=== PATIENT | female | born 1965 | race Two or more races ===

== ENCOUNTER 2022-05-08 19:30 | Inpatient (IN) | payer MEDICAID ==
[~2022-05-08] VITALS: Ht 157.5 cm; Wt 94.4 kg
[2022-05-08] MEDS ORDERED: SODIUM CHLORIDE 0.9% 1,000 ML IV ONE (20:30)
[2022-05-08 21:11] LABS: Albumin 3.8 g/dL (3.4-5.0); BUN/Creatinine Ratio 26.2; Calcium 9.1 mg/dL (8.5-10.1); Magnesium 2.2 mg/dL (1.6-2.6); Potassium 3.9 mmol/L (3.5-5.1)
[2022-05-08 21:14] LABS: Bilirubin, Total 0.8 mg/dL (0.2-1.0); Total Protein 7.2 g/dL (6.4-8.2)
[2022-05-08 21:17] LABS: INR 0.93 (0.9-1.15); Partial Thromboplastin Time 25.4 sec (24.6-33.4)
[2022-05-08] MEDS ORDERED: HYDROmorphone HCL 2 MG/ML VL/or syr IV ONE (21:45)
[2022-05-08] MEDS ORDERED: ONDANSETRON HCL 4 MG/2 ML VIAL IV ONE ×2 (21:45→23:00)
[2022-05-08] MEDS ORDERED: IOHEXOL 350 MG/ML 100ML IJ ONE (22:10)
[2022-05-08 22:16] LABS: Albumin 3.4 g/dL (3.4-5.0); Calcium 8.7 mg/dL (8.5-10.1); Potassium 4.1 mmol/L (3.5-5.1)
[2022-05-08 22:18] LABS: Hemoglobin 11.6 g/dL (12.2-16.2)
[2022-05-08 22:19] LABS: BUN/Creatinine Ratio 23.1; Bilirubin, Total 0.7 mg/dL (0.2-1.0); Total Protein 6.4 g/dL (6.4-8.2)
[2022-05-08 22:20] LABS: Hematocrit 36.1 % (36.0-46.0); Mean Corpuscular Hemoglobin 28.5 pg (28.0-32.0); Mean Corpuscular Hgb Conc. 32.2 g/dL (32.0-36.0); Mean Corpuscular Volume 88.6 fL (80.0-100.0); Red Blood Cells 4.07 10^6/uL (4.0-5.20); Red Cell Distribution Width 13.6 % (11.8-14.3)
[2022-05-08 22:39] LABS: Basophils % (manual) 0 (0.0-2.0); Blast Cells 0; Myelocytes % 0; Promyelocytes % 0; Reactive Lymphocytes 0; White Blood Cell 0.8 10^3/uL (4.4-10.8)
[2022-05-08 23:35] LABS: Band Neutrophils % (manual) 2; Eosinophils % (manual) 7 (0-7); Lymphocytes % (manual) 72 (10.0-50.0); Metamyelocytes % 1; Monocytes % (manual) 10 (0-12)
[2022-05-09] MEDS ORDERED: MORPHINE SULFATE INJ 2 MG/ml SYRG IV PRN (03:00)
[2022-05-09] MEDS ORDERED: HYDROcodone-ACET 5/325MG TAB PO PRN (03:00)
[2022-05-09] MEDS ORDERED: ACETAMINOPHEN 325 MG TAB PO PRN (03:00)
[2022-05-09] MEDS ORDERED: PANTOPRAZOLE 40 MG/10 ML VIAL INJ IV ONE (03:00)
[2022-05-09] MEDS ORDERED: FILGRASTIM(TBO) 480 MCG/0.8 ML SYRG SC ONE (03:00)
[2022-05-09] MEDS: SODIUM CHLORIDE 0.9% 1,000 ML IV SCH ×2 (03:47→16:20)
[2022-05-09] MEDS: ONDANSETRON HCL 4 MG/2 ML VIAL IV PRN ×2 (06:08→16:04)
[2022-05-09] MEDS: PANTOPRAZOLE 40 MG/10 ML VIAL INJ IV SCH (09:27)
[2022-05-09 21:25] VITALS: BP 119/57
[2022-05-09] MEDS ORDERED: FAMO-12 PO (21:43)
[2022-05-09] MEDS ORDERED: PARO10TA93 PO (21:43)
[2022-05-09] MEDS ORDERED: PROC10TA2 PO (21:43)
[2022-05-09] MEDS ORDERED: DEXA4TAB PO (21:43)
[2022-05-09] MEDS ORDERED: ONDA-180 PO (21:43)
[2022-05-09 22:00] VITALS: BP 119/57
[2022-05-10 04:46] VITALS: BP 113/60
[2022-05-10] MEDS: SODIUM CHLORIDE 0.9% 1,000 ML IV SCH (05:09)
[2022-05-10 05:31] LABS: Hematocrit 34.7 % (36.0-46.0); Hemoglobin 11.5 g/dL (12.2-16.2); Mean Corpuscular Hemoglobin 29.3 pg (28.0-32.0); Mean Corpuscular Hgb Conc. 33.2 g/dL (32.0-36.0); Mean Corpuscular Volume 88.2 fL (80.0-100.0); Red Blood Cells 3.93 10^6/uL (4.0-5.20); Red Cell Distribution Width 13.9 % (11.8-14.3); White Blood Cell 2.2 10^3/uL (4.4-10.8)
[2022-05-10 05:48] LABS: Basophils % (manual) 0 (0.0-2.0); Blast Cells 0; Promyelocytes % 0; Reactive Lymphocytes 0
[2022-05-10 05:49] LABS: Potassium 4.5 mmol/L (3.5-5.1)
[2022-05-10 06:01] LABS: Albumin 3.4 g/dL (3.4-5.0); BUN/Creatinine Ratio 18.1; Bilirubin, Total 0.3 mg/dL (0.2-1.0); Calcium 8.7 mg/dL (8.5-10.1); Total Protein 6.4 g/dL (6.4-8.2)
[2022-05-10] MEDS: ONDANSETRON HCL 4 MG/2 ML VIAL IV PRN ×2 (06:09→13:23)
[2022-05-10 07:13] LABS: Band Neutrophils % (manual) 29; Eosinophils % (manual) 3 (0-7); Lymphocytes % (manual) 49 (10.0-50.0); Metamyelocytes % 2; Monocytes % (manual) 7 (0-12); Myelocytes % 2
[2022-05-10 09:00] VITALS: BP 100/47
[2022-05-10] MEDS: PANTOPRAZOLE 40 MG/10 ML VIAL INJ IV SCH (09:00)
[2022-05-10] MEDS ORDERED: SENNA 8.6 MG TAB PO ONE (09:30)
[2022-05-10 13:00] VITALS: BP 115/56
[2022-05-10 17:02] VITALS: BP 104/49
[2022-05-10 22:00] VITALS: BP 114/68
[2022-05-10] MEDS ORDERED: SENNA 8.6 MG TAB PO SCH (22:00)
[2022-05-11 05:00] VITALS: BP 135/75
[2022-05-11 05:39] LABS: BUN/Creatinine Ratio 15.4; Calcium 8.7 mg/dL (8.5-10.1); Potassium 4.1 mmol/L (3.5-5.1)
[2022-05-11 09:00] VITALS: BP 128/68
[2022-05-11] MEDS: PANTOPRAZOLE 40 MG/10 ML VIAL INJ IV SCH (09:24)
[2022-05-11 13:00] VITALS: BP 124/65
[2022-05-11 14:42] VITALS: BP 124/65
== END 2022-05-11 15:10 | disposition home or self-care (01) | DRG 251 ==
LOC: ER 19:30 → OVERFLOW 05-09 02:46 → EAST 05-09 20:43
PROVIDERS: ADMIT Nurse Practitioner; ATTEND Internal Medicine Pulmonary Disease
DX: R10.9 Unspecified abdominal pain (principal); C50.911 Malignant neoplasm of unspecified site of right female breast; D70.9 Neutropenia, unspecified; E86.0 Dehydration; Z20.822 Contact with and (suspected) exposure to COVID-19; Z82.49 Family history of ischemic heart disease and other diseases of the circulatory system; Z88.8 Allergy status to other drugs, medicaments and biological substances; Z83.3 Family history of diabetes mellitus; Z90.49 Acquired absence of other specified parts of digestive tract
CPT/HCPCS: 36415; 71260; 74177; 80048; 80053; 83605; 83735; 83880; 84484; 85007; 85027; 85610; 85730; 87040; 93005; 96361; 96372; 96374; 96375; 96376; C9113; G0378; J1447; J2405

== ENCOUNTER 2022-06-19 21:06 | Inpatient (IN) | payer MEDICAID ==
[~2022-06-19] VITALS: Ht 157.5 cm; Wt 92.1 kg
[~2022-06-19 21:06] MED LIST: DEXA4TAB PO; FAMO-12 PO; ONDA-180 PO; PARO10TA93 PO; PROC10TA2 PO
[2022-06-19] MEDS ORDERED: ONDANSETRON HCL 4 MG/2 ML VIAL IV ONE (22:30)
[2022-06-19 23:29] LABS: Basophils # (auto) 0 10 ^3/uL (0-0.2); Hemoglobin 9.2 g/dL (12.2-16.2); Lymphocytes # (auto) 0.2 10 ^3/uL (0.4-5.4); Monocytes # (auto) 0.1 10 ^3/uL (0-1.3); Neutrophils # (auto) 0 10 ^3/uL (1.6-8.6)
[2022-06-19] MEDS ORDERED: SODIUM CHLORIDE 0.9% 1,000 ML IV ONE (23:30)
[2022-06-19] MEDS ORDERED: FAMOTIDINE (10MG/ML) 2ML VL IV ONE (23:30)
[2022-06-19 23:32] LABS: Basophils % (auto) 4.2 % (0.0-2.0); Eosinophils # (auto) 0 10 ^3/uL (0-0.8); Eosinophils % (auto) 1.1 % (0.0-7.0); Hematocrit 27.3 % (36.0-46.0); Lymphocytes % (auto) 52.7 % (10.0-50.0); Mean Corpuscular Hemoglobin 29.9 pg (28.0-32.0); Mean Corpuscular Hgb Conc. 33.7 g/dL (32.0-36.0); Mean Corpuscular Volume 88.6 fL (80.0-100.0); Red Blood Cells 3.08 10^6/uL (4.0-5.20); Red Cell Distribution Width 17.3 % (11.8-14.3)
[2022-06-19 23:45] LABS: INR 0.97 (0.9-1.15); Partial Thromboplastin Time 27.1 sec (24.6-33.4)
[2022-06-19] MEDS ORDERED: IOHEXOL 350 MG/ML 100ML IJ ONE (23:48)
[2022-06-19 23:50] LABS: Albumin 3.1 g/dL (3.4-5.0); BUN/Creatinine Ratio 24.6; Calcium 8.7 mg/dL (8.5-10.1); Magnesium 1.9 mg/dL (1.6-2.6); Potassium 4.3 mmol/L (3.5-5.1)
[2022-06-19 23:52] LABS: Bilirubin, Total 0.5 mg/dL (0.2-1.0); Total Protein 6.1 g/dL (6.4-8.2)
[2022-06-20 00:08] LABS: White Blood Cell 0.3 10^3/uL (4.4-10.8)
[2022-06-20 02:29] LABS: Urine Bacteria NONE SEEN /hpf (None Seen); Urine Blood Negative /uL (Negative); Urine WBC 3 /hpf (0 - 5)
[2022-06-20 02:32] LABS: Urine Specific Gravity > 1.050 (1.001-1.035)
[2022-06-20] MEDS ORDERED: TEMAZEPAM 15 MG CAP PO PRN (04:45)
[2022-06-20] MEDS ORDERED: FILGRASTIM(TBO) 480 MCG/0.8 ML SYRG SC ONE (04:45)
[2022-06-20] MEDS ORDERED: HYDROcodone-ACET 5/325MG TAB PO PRN (04:45)
[2022-06-20] MEDS: PANTOPRAZOLE 40 MG TAB PO SCH (10:36)
[2022-06-20] MEDS: MULTIPLE VITAMIN TAB PO SCH (10:36)
[2022-06-20] MEDS: ZINC SULFATE 220mg CAP or TAB PO SCH (10:37)
[2022-06-20] MEDS: ASCORBIC ACID 500 MG TAB PO SCH ×2 (10:37→21:41)
[2022-06-20] MEDS ORDERED: CEFEPIME 1GM/ 50ML 50 ML IV ONE (12:45)
[2022-06-20] MEDS: CEFEPIME 1GM/ 50ML 50 ML IV SCH ×2 (13:07→21:20)
[2022-06-20 17:51] VITALS: BP 102/49
[2022-06-20 17:53] VITALS: BP 102/49
[2022-06-20] MEDS: ONDANSETRON HCL 4 MG/2 ML VIAL IV PRN ×2 (17:58→21:41)
[2022-06-20] MEDS ORDERED: PANT40TA2 PO (18:04)
[2022-06-20 22:00] VITALS: BP 104/57
[2022-06-21] MEDS: CEFEPIME 1GM/ 50ML 50 ML IV SCH ×3 (04:53→21:11)
[2022-06-21 05:00] VITALS: BP 104/47
[2022-06-21 06:07] LABS: Albumin 2.9 g/dL (3.4-5.0); BUN/Creatinine Ratio 12.8; Bilirubin, Total 0.4 mg/dL (0.2-1.0); Calcium 8.6 mg/dL (8.5-10.1); Total Protein 5.3 g/dL (6.4-8.2)
[2022-06-21 06:27] LABS: Basophils # (auto) 0 10 ^3/uL (0-0.2); Eosinophils # (auto) 0 10 ^3/uL (0-0.8); Lymphocytes # (auto) 0.3 10 ^3/uL (0.4-5.4)
[2022-06-21 06:29] LABS: Eosinophils % (auto) 0.6 % (0.0-7.0); Hematocrit 24.7 % (36.0-46.0); Lymphocytes % (auto) 25.3 % (10.0-50.0); Mean Corpuscular Hemoglobin 29.1 pg (28.0-32.0); Mean Corpuscular Hgb Conc. 32.5 g/dL (32.0-36.0); Mean Corpuscular Volume 89.5 fL (80.0-100.0); Monocytes # (auto) 0.4 10 ^3/uL (0-1.3); Neutrophils # (auto) 0.4 10 ^3/uL (1.6-8.6); Neutrophils % (auto) 35.7 % (37.0-80.0); Nucleated Red Blood Cells % 1.1 %; Red Blood Cells 2.76 10^6/uL (4.0-5.20)
[2022-06-21 07:06] LABS: Monocytes % (auto) 34.4 % (0.0-12.0)
[2022-06-21 08:30] VITALS: BP 103/47
[2022-06-21] MEDS: PANTOPRAZOLE 40 MG TAB PO SCH (09:27)
[2022-06-21] MEDS: ZINC SULFATE 220mg CAP or TAB PO SCH (09:28)
[2022-06-21] MEDS: ASCORBIC ACID 500 MG TAB PO SCH ×2 (09:28→21:54)
[2022-06-21] MEDS: MULTIPLE VITAMIN TAB PO SCH (09:28)
[2022-06-21 12:30] VITALS: BP 95/47
[2022-06-21] MEDS ORDERED: SENNA 8.6 MG TAB PO PRN (12:30)
[2022-06-21] MEDS: FILGRASTIM(TBO) 480 MCG/0.8 ML SYRG SC SCH (15:03)
[2022-06-21 16:13] VITALS: BP 105/50
[2022-06-21] MEDS: MAGIC MOUTHWASH 55 ML SUSP MT SCH ×2 (18:01→21:55)
[2022-06-21 22:00] VITALS: BP 107/42
[2022-06-22] MEDS: CEFEPIME 1GM/ 50ML 50 ML IV SCH ×3 (04:36→21:12)
[2022-06-22 05:00] VITALS: BP 93/40
[2022-06-22 05:26] LABS: Hemoglobin 8.6 g/dL (12.2-16.2); White Blood Cell 4.8 10^3/uL (4.4-10.8)
[2022-06-22 05:30] LABS: Mean Corpuscular Hemoglobin 30.4 pg (28.0-32.0); Mean Corpuscular Hgb Conc. 34.3 g/dL (32.0-36.0); Mean Corpuscular Volume 88.5 fL (80.0-100.0); Red Blood Cells 2.83 10^6/uL (4.0-5.20); Red Cell Distribution Width 18.3 % (11.8-14.3)
[2022-06-22 05:50] LABS: BUN/Creatinine Ratio 19.5; Calcium 8.8 mg/dL (8.5-10.1); Potassium 3.9 mmol/L (3.5-5.1)
[2022-06-22 06:21] LABS: Basophils % (manual) 0 (0.0-2.0); Blast Cells 0; Eosinophils % (manual) 0 (0-7); Reactive Lymphocytes 0
[2022-06-22] MEDS: MAGIC MOUTHWASH 55 ML SUSP MT SCH ×4 (07:10→21:53)
[2022-06-22 07:13] LABS: Band Neutrophils % (manual) 15; Lymphocytes % (manual) 14 (10.0-50.0); Metamyelocytes % 2; Monocytes % (manual) 7 (0-12); Myelocytes % 2; Promyelocytes % 2
[2022-06-22 09:00] VITALS: BP 108/48
[2022-06-22] MEDS: ACETAMINOPHEN 325 MG TAB PO PRN ×2 (10:26→21:54)
[2022-06-22] MEDS: PANTOPRAZOLE 40 MG TAB PO SCH (10:27)
[2022-06-22] MEDS: MULTIPLE VITAMIN TAB PO SCH (10:27)
[2022-06-22] MEDS: ASCORBIC ACID 500 MG TAB PO SCH ×2 (10:28→21:54)
[2022-06-22] MEDS: ZINC SULFATE 220mg CAP or TAB PO SCH (10:56)
[2022-06-22 13:00] VITALS: BP 97/54
[2022-06-22] MEDS: PARoxetine 20 MG TAB PO SCH (13:33)
[2022-06-22] MEDS: ONDANSETRON HCL 4 MG/2 ML VIAL IV PRN (13:47)
[2022-06-22] MEDS: FILGRASTIM(TBO) 480 MCG/0.8 ML SYRG SC SCH (14:22)
[2022-06-22] MEDS: PROMETHAZINE HCL 25 MG/ML 1ML IV PRN (16:04)
[2022-06-22 17:00] VITALS: BP 109/48
[2022-06-22 21:30] VITALS: BP 112/56
[2022-06-23 03:20] LABS: Hemoglobin 8.4 g/dL (12.2-16.2)
[2022-06-23 03:23] LABS: Hematocrit 24.4 % (36.0-46.0); Mean Corpuscular Hemoglobin 30.8 pg (28.0-32.0); Mean Corpuscular Hgb Conc. 34.6 g/dL (32.0-36.0); Mean Corpuscular Volume 88.9 fL (80.0-100.0); Red Blood Cells 2.74 10^6/uL (4.0-5.20); Red Cell Distribution Width 18.4 % (11.8-14.3); White Blood Cell 12.9 10^3/uL (4.4-10.8)
[2022-06-23 03:37] LABS: Basophils % (manual) 0 (0.0-2.0); Blast Cells 0; Eosinophils % (manual) 0 (0-7); Metamyelocytes % 0; Promyelocytes % 0; Reactive Lymphocytes 0
[2022-06-23 03:44] LABS: Calcium 8.6 mg/dL (8.5-10.1); Potassium 3.6 mmol/L (3.5-5.1)
[2022-06-23] MEDS: CEFEPIME 1GM/ 50ML 50 ML IV SCH (04:52)
[2022-06-23 05:00] VITALS: BP 108/52
[2022-06-23] MEDS: MAGIC MOUTHWASH 55 ML SUSP MT SCH ×2 (05:58→09:55)
[2022-06-23 08:53] VITALS: BP 103/46
[2022-06-23] MEDS ORDERED: MAGIC MT (09:43)
[2022-06-23] MEDS: PARoxetine 20 MG TAB PO SCH (09:54)
[2022-06-23] MEDS: ASCORBIC ACID 500 MG TAB PO SCH (09:54)
[2022-06-23] MEDS: ZINC SULFATE 220mg CAP or TAB PO SCH (09:54)
[2022-06-23] MEDS: MULTIPLE VITAMIN TAB PO SCH (09:54)
[2022-06-23] MEDS: PANTOPRAZOLE 40 MG TAB PO SCH (09:54)
[2022-06-23 12:21] LABS: Band Neutrophils % (manual) 9; Lymphocytes % (manual) 7 (10.0-50.0); Monocytes % (manual) 7 (0-12); Myelocytes % 1
[2022-06-23] MEDS: PROMETHAZINE HCL 25 MG/ML 1ML IV PRN (12:37)
[2022-06-23 13:05] VITALS: BP 117/66
== END 2022-06-23 15:00 | disposition home or self-care (01) | DRG 660 ==
LOC: ER 21:10 → OVERFLOW 06-20 04:39 → CENTRAL 06-20 16:58
PROVIDERS: ADMIT Nurse Practitioner; ATTEND Internal Medicine Pulmonary Disease
DX: D61.810 Antineoplastic chemotherapy induced pancytopenia (principal); C50.919 Malignant neoplasm of unspecified site of unspecified female breast; C34.90 Malignant neoplasm of unspecified part of unspecified bronchus or lung; K12.31 Oral mucositis (ulcerative) due to antineoplastic therapy; E86.0 Dehydration; E66.9 Obesity, unspecified; Z68.37 Body mass index [BMI] 37.0-37.9, adult; F32.A Depression, unspecified; Z20.822 Contact with and (suspected) exposure to COVID-19; T45.1X5A Adverse effect of antineoplastic and immunosuppressive drugs, initial encounter; Y92.89 Other specified places as the place of occurrence of the external cause; Z80.3 Family history of malignant neoplasm of breast; Z90.49 Acquired absence of other specified parts of digestive tract; Z85.3 Personal history of malignant neoplasm of breast; Z83.3 Family history of diabetes mellitus; Z82.49 Family history of ischemic heart disease and other diseases of the circulatory system; Z88.2 Allergy status to sulfonamides
CPT/HCPCS: 36415; 70450; 80048; 80053; 81001; 83605; 83735; 83880; 84484; 85007; 85025; 85027; 85610; 85730; 87804; 93005; 96361; 96374; 96375; G0378; J1447; J2405; J3490

== ENCOUNTER 2022-07-06 08:30 | Inpatient (IN) | payer MEDICAID ==
[~2022-07-06] VITALS: Ht 177.8 cm; Wt 93.6 kg
[~2022-07-06 08:30] MED LIST changes: +MAGIC MT; +PANT40TA2 PO
[2022-07-06 09:01] LABS: Hematocrit 29.2 % (36.0-46.0); Hemoglobin 9.6 g/dL (12.2-16.2); Mean Corpuscular Hemoglobin 29.7 pg (28.0-32.0); Mean Corpuscular Hgb Conc. 32.9 g/dL (32.0-36.0); Mean Corpuscular Volume 90.5 fL (80.0-100.0); Red Blood Cells 3.22 10^6/uL (4.0-5.20); White Blood Cell 17.5 10^3/uL (4.4-10.8)
[2022-07-06] MEDS ORDERED: cefTRIAXone 1GM/50ML D5W 50 ML IV ONE (09:15)
[2022-07-06 09:20] LABS: Calcium 8.7 mg/dL (8.5-10.1); Potassium 3.8 mmol/L (3.5-5.1)
[2022-07-06 09:24] LABS: BUN/Creatinine Ratio 12.1; Bilirubin, Total 0.6 mg/dL (0.2-1.0); Total Protein 6.4 g/dL (6.4-8.2)
[2022-07-06 09:45] LABS: Red Cell Distribution Width 20.9 % (11.8-14.3)
[2022-07-06 09:47] LABS: Basophils % (manual) 0 (0.0-2.0); Blast Cells 0; Eosinophils % (manual) 0 (0-7); Myelocytes % 0; Promyelocytes % 0; Reactive Lymphocytes 0
[2022-07-06 10:47] LABS: Band Neutrophils % (manual) 9; Lymphocytes % (manual) 5 (10.0-50.0); Metamyelocytes % 6; Monocytes % (manual) 9 (0-12)
[2022-07-06] MEDS ORDERED: ALBUTEROL SULF 2.5 MG/0.5ML(0.5%) NEB SOLN NEB PRN (12:00)
[2022-07-06] MEDS ORDERED: ONDANSETRON HCL 4 MG/2 ML VIAL IV PRN (12:00)
[2022-07-06] MEDS ORDERED: DOCUSATE SOD 100 MG CAP PO PRN (12:00)
[2022-07-06] MEDS ORDERED: ACETAMINOPHEN 325 MG TAB PO PRN (12:00)
[2022-07-06] MEDS ORDERED: MORPHINE SULFATE INJ 2 MG/ml SYRG IV PRN (12:00)
[2022-07-06] MEDS ORDERED: NITROGLYCERIN 0.4 MG SL TAB SL PRN (12:00)
[2022-07-06] MEDS ORDERED: IOHEXOL 350 MG/ML 100ML IJ ONE (12:29)
[2022-07-06 13:00] VITALS: BP 103/73
[2022-07-06 13:15] LABS: % Iron Saturation 13.8 % (15-50)
[2022-07-06] MEDS: SODIUM CHLORIDE 0.9% 1,000 ML IV SCH ×2 (14:36→20:20)
[2022-07-06] MEDS: ENSURE CLEAR Mixed Berry 8oz Carton PO SCH ×2 (14:46→18:00)
[2022-07-06] MEDS ORDERED: guaiFENesin-DM 100/10mg/5ml SYR PO ONE (21:15)
[2022-07-06] MEDS: ENOXAPARIN SOD 100 MG/1 ML SYRINGE SC SCH (21:40)
[2022-07-07] MEDS: IPRATROPIUM BROM 0.5 MG/2.5ML INH SOL NEB PRN ×2 (02:23→20:49)
[2022-07-07] MEDS: ALBUTEROL SULF 2.5 MG/0.5ML(0.5%) NEB SOLN NEB PRN ×2 (02:23→20:49)
[2022-07-07 04:26] LABS: Basophils # (auto) 0.1 10 ^3/uL (0-0.2); Eosinophils # (auto) 0.1 10 ^3/uL (0-0.8); Lymphocytes # (auto) 0.5 10 ^3/uL (0.4-5.4); Monocytes # (auto) 1.4 10 ^3/uL (0-1.3); Neutrophils # (auto) 8.8 10 ^3/uL (1.6-8.6)
[2022-07-07 04:28] LABS: Basophils % (auto) 1.1 % (0.0-2.0); Hematocrit 23.6 % (36.0-46.0); Lymphocytes % (auto) 4.5 % (10.0-50.0); Mean Corpuscular Hemoglobin 30.8 pg (28.0-32.0); Mean Corpuscular Volume 90.6 fL (80.0-100.0); Monocytes % (auto) 12.7 % (0.0-12.0); Neutrophils % (auto) 80.7 % (37.0-80.0); Nucleated Red Blood Cells % 0.6 %; White Blood Cell 10.9 10^3/uL (4.4-10.8)
[2022-07-07 04:35] LABS: Calcium 8.1 mg/dL (8.5-10.1); Potassium 3.8 mmol/L (3.5-5.1)
[2022-07-07 04:42] LABS: Albumin 2.5 g/dL (3.4-5.0); BUN/Creatinine Ratio 18.9; Bilirubin, Total 0.4 mg/dL (0.2-1.0); Total Protein 5.1 g/dL (6.4-8.2)
[2022-07-07 04:46] LABS: Red Cell Distribution Width 20.9 % (11.8-14.3)
[2022-07-07] MEDS: SODIUM CHLORIDE 0.9% 1,000 ML IV SCH ×3 (06:27→18:58)
[2022-07-07 10:42] VITALS: BP 116/47
[2022-07-07] MEDS ORDERED: SENNA 8.6 MG TAB PO ONE (11:15)
[2022-07-07] MEDS ORDERED: SENN1TAB14 PO (11:31)
[2022-07-07] MEDS: PARoxetine 20 MG TAB PO SCH (11:32)
[2022-07-07] MEDS: ASPirin 325 MG TAB PO SCH (11:32)
[2022-07-07] MEDS: cefTRIAXone 1GM/50ML D5W 50 ML IV SCH (11:32)
[2022-07-07] MEDS: PANTOPRAZOLE 40 MG/10 ML VIAL INJ IV SCH (11:32)
[2022-07-07] MEDS: AZITHROMYCIN 500MG/ 250ML 250 ML IV SCH (11:33)
[2022-07-07] MEDS: ENOXAPARIN SOD 100 MG/1 ML SYRINGE SC SCH ×2 (11:33→21:49)
[2022-07-07] MEDS: ENSURE CLEAR Mixed Berry 8oz Carton PO SCH ×3 (11:34→18:10)
[2022-07-07 22:20] VITALS: BP 101/49
[2022-07-08] MEDS: guaiFENesin-CODEINE Liq 5 ML UD PO PRN ×2 (00:10→21:59)
[2022-07-08 00:38] LABS: Urine Bacteria NONE SEEN /hpf (None Seen); Urine Blood Negative /uL (Negative); Urine Mucus FEW (None Seen); Urine Specific Gravity 1.021 (1.001-1.035); Urine WBC 1 /hpf (0 - 5)
[2022-07-08] MEDS: SODIUM CHLORIDE 0.9% 1,000 ML IV SCH ×3 (02:06→20:15)
[2022-07-08] MEDS: IPRATROPIUM BROM 0.5 MG/2.5ML INH SOL NEB PRN ×5 (02:15→21:19)
[2022-07-08] MEDS: ALBUTEROL SULF 2.5 MG/0.5ML(0.5%) NEB SOLN NEB PRN ×5 (02:15→21:19)
[2022-07-08 05:00] VITALS: BP 99/52
[2022-07-08 08:00] VITALS: BP 102/57
[2022-07-08] MEDS: ENSURE CLEAR Mixed Berry 8oz Carton PO SCH ×3 (08:00→19:00)
[2022-07-08] MEDS: ENOXAPARIN SOD 100 MG/1 ML SYRINGE SC SCH ×2 (10:02→21:59)
[2022-07-08] MEDS: cefTRIAXone 1GM/50ML D5W 50 ML IV SCH (10:02)
[2022-07-08] MEDS: PANTOPRAZOLE 40 MG/10 ML VIAL INJ IV SCH (10:02)
[2022-07-08] MEDS: ASPirin 325 MG TAB PO SCH (10:03)
[2022-07-08] MEDS: PARoxetine 20 MG TAB PO SCH (10:05)
[2022-07-08] MEDS: AZITHROMYCIN 500MG/ 250ML 250 ML IV SCH (11:05)
[2022-07-08 12:00] VITALS: BP 107/49
[2022-07-08 16:00] VITALS: BP 99/55
[2022-07-08 22:00] VITALS: BP 123/91
[2022-07-08] MEDS ORDERED: SENNA 8.6 MG TAB PO SCH (22:00)
[2022-07-09] VITALS (9 sets, daily range): BP systolic 105–148; BP diastolic 41–81
[2022-07-09] MEDS: ALBUTEROL SULF 2.5 MG/0.5ML(0.5%) NEB SOLN NEB PRN ×2 (02:40→10:11)
[2022-07-09] MEDS: IPRATROPIUM BROM 0.5 MG/2.5ML INH SOL NEB PRN ×2 (02:40→10:11)
[2022-07-09] MEDS: SODIUM CHLORIDE 0.9% 1,000 ML IV SCH ×2 (04:09→15:00)
[2022-07-09] MEDS: guaiFENesin-CODEINE Liq 5 ML UD PO PRN (04:18)
[2022-07-09] MEDS ORDERED: FLUTICASONE PROP NASAL SPR 0.05 % (50MCG) 16GM EACHNOSTRI PRN ×2 (04:30)
[2022-07-09 07:45] LABS: Hematocrit 20.3 % (36.0-46.0); Mean Corpuscular Hgb Conc. 34.2 g/dL (32.0-36.0); Mean Corpuscular Volume 90.7 fL (80.0-100.0); Red Blood Cells 2.24 10^6/uL (4.0-5.20); White Blood Cell 8.5 10^3/uL (4.4-10.8)
[2022-07-09 07:46] LABS: Red Cell Distribution Width 21.7 % (11.8-14.3)
[2022-07-09 07:51] LABS: BUN/Creatinine Ratio 9.7; Potassium 3.2 mmol/L (3.5-5.1)
[2022-07-09 07:59] LABS: Hemoglobin 6.9 g/dL (12.2-16.2)
[2022-07-09] MEDS: ENSURE CLEAR Mixed Berry 8oz Carton PO SCH ×3 (08:00→18:00)
[2022-07-09 08:01] LABS: Band Neutrophils % (manual) 0; Basophils % (manual) 0 (0.0-2.0); Blast Cells 0; Metamyelocytes % 0; Myelocytes % 0; Promyelocytes % 0; Reactive Lymphocytes 0
[2022-07-09 08:44] LABS: Eosinophils % (manual) 2 (0-7); Lymphocytes % (manual) 7 (10.0-50.0); Monocytes % (manual) 10 (0-12)
[2022-07-09] MEDS: cefTRIAXone 1GM/50ML D5W 50 ML IV SCH (09:32)
[2022-07-09] MEDS: AZITHROMYCIN 500MG/ 250ML 250 ML IV SCH (11:15)
[2022-07-09] MEDS: ENOXAPARIN SOD 100 MG/1 ML SYRINGE SC SCH (11:15)
[2022-07-09] MEDS: ASPirin 325 MG TAB PO SCH (11:15)
[2022-07-09] MEDS: PANTOPRAZOLE 40 MG/10 ML VIAL INJ IV SCH (11:15)
[2022-07-09] MEDS: PARoxetine 20 MG TAB PO SCH (11:17)
[2022-07-09] MEDS ORDERED: FUROSEMIDE 40 MG/4 ML VIAL IV ONE (17:20)
[2022-07-09] MEDS ORDERED: FLUT50SP EACHNOSTRI (17:54)
[2022-07-09] MEDS ORDERED: AZITTAB PO (17:54)
[2022-07-09 20:20] LABS: Hematocrit 29.6 % (36.0-46.0); Hemoglobin 9.7 g/dL (12.2-16.2)
== END 2022-07-09 20:43 | disposition home or self-care (01) | DRG 139 ==
LOC: ER 08:30 → TELE 12:00 → TELE-WESTW 07-07 10:15
PROVIDERS: ADMIT Nurse Practitioner Family; ATTEND Internal Medicine
PROC: 30233N1 Transfusion of Nonautologous Red Blood Cells into Peripheral Vein, Percutaneous Approach (ICD-10-PCS; principal; 2022-07-09)
DX: J18.9 Pneumonia, unspecified organism (principal); C50.919 Malignant neoplasm of unspecified site of unspecified female breast; D63.8 Anemia in other chronic diseases classified elsewhere; E86.0 Dehydration; D64.9 Anemia, unspecified; T45.1X5A Adverse effect of antineoplastic and immunosuppressive drugs, initial encounter; Z20.822 Contact with and (suspected) exposure to COVID-19; Z90.49 Acquired absence of other specified parts of digestive tract; Z87.891 Personal history of nicotine dependence; Z82.49 Family history of ischemic heart disease and other diseases of the circulatory system
CPT/HCPCS: 36415; 36600; 71045; 71275; 80048; 80053; 81001; 81025; 82805; 83540; 83550; 83605; 83615; 83880; 84484; 85007; 85014; 85018; 85025; 85027; 85379; 86850; 86900; 86901; 86920; 87040; 87081; 87426; 87804; 93005; 93306; 94640; 96365; C9113; G0378; J0696

== ENCOUNTER → 2023-12-13 | Outpatient (CLI) | payer MEDICAID ==
[~2023-12-13] MED LIST changes: +AZITTAB PO; -FAMO-12 PO; +FLUT50SP EACHNOSTRI; -MAGIC MT; -PROC10TA2 PO; +SENN1TAB14 PO
[2023-12-13 09:34] LABS: Basophils # (auto) 0 10 ^3/uL (0-0.2); Basophils % (auto) 0.7 % (0.0-2.0); Eosinophils # (auto) 0.1 10 ^3/uL (0-0.8); Eosinophils % (auto) 2.3 % (0.0-7.0); Hematocrit 37.5 % (36.0-46.0); Hemoglobin 12.6 g/dL (12.2-16.2); Lymphocytes # (auto) 1.2 10 ^3/uL (0.4-5.4); Lymphocytes % (auto) 26.7 % (10.0-50.0); Mean Corpuscular Hemoglobin 30.8 pg (28.0-32.0); Mean Corpuscular Hgb Conc. 33.6 g/dL (32.0-36.0); Mean Corpuscular Volume 91.4 fL (80.0-100.0); Monocytes # (auto) 0.4 10 ^3/uL (0-1.3); Monocytes % (auto) 9.3 % (0.0-12.0); Neutrophils # (auto) 2.8 10 ^3/uL (1.6-8.6); Red Cell Distribution Width 13.6 % (11.8-14.3); White Blood Cell 4.6 10^3/uL (4.4-10.8)
[2023-12-13 10:28] LABS: Alanine Aminotransferase 12 U/L (7-40); Albumin 4.2 g/dL (3.2-4.8); Alkaline Phosphatase 125 U/L (46-116); Anion Gap 5 (5-15); Aspartate Aminotransferase 19 U/L (13-40); BUN/Creatinine Ratio 18.5 (10.0-20.0); Bilirubin, Total 0.6 mg/dL (0.2-1.0); Blood Urea Nitrogen 12 mg/dL (9-23); Calcium 9.4 mg/dL (8.5-10.1); Carbon Dioxide 29 mmol/L (20-30); Chloride 108 mmol/L (98-107); Cholesterol 181 mg/dL (< 200); Glucose 89 mg/dL (74-106); HDL Cholesterol 72 mg/dL (40-59); LDL Cholesterol 98 mg/dL (< 100); Potassium 4.3 mmol/L (3.5-5.1); Sodium 142 mmol/L (136-145); Total Protein 6.6 g/dL (5.7-8.2); Triglycerides 95 mg/dL (< 150)
== END | disposition home or self-care (01) ==
LOC: LAB 09:15
PROVIDERS: ATTEND Nurse Practitioner Family
DX: I10 Essential (primary) hypertension (principal); E66.01 Morbid (severe) obesity due to excess calories; C50.919 Malignant neoplasm of unspecified site of unspecified female breast
CPT/HCPCS: 36415; 80053; 80061; 82306; 84439; 84443; 85025

== ENCOUNTER 2024-03-22 23:42 | Emergency (ER) | payer MEDICAID ==
[~2024-03-22] VITALS: Ht 157.5 cm; Wt 86.2 kg
[2024-03-23 00:01] VITALS: BP 151/86; PULSE 84; RESP 22; O2SAT 99
== END 2024-03-23 02:20 | disposition left against medical advice (07) ==
LOC: EDBD 23:42 → ER 23:42
DX: R10.13 Epigastric pain (principal); R11.2 Nausea with vomiting, unspecified; Z53.21 Procedure and treatment not carried out due to patient leaving prior to being seen by health care provider

== ENCOUNTER → 2025-02-13 | Outpatient (CLI) | payer MEDICAID ==
[2025-02-13 08:48] LABS: Basophils # (auto) 0 10 ^3/uL (0-0.2); Basophils % (auto) 0.9 % (0.0-2.0); Eosinophils # (auto) 0.1 10 ^3/uL (0-0.8); Eosinophils % (auto) 1.5 % (0.0-7.0); Hematocrit 39.1 % (36.0-46.0); Hemoglobin 13.2 g/dL (12.2-16.2); Lymphocytes # (auto) 1.5 10 ^3/uL (0.4-5.4); Lymphocytes % (auto) 29.8 % (10.0-50.0); Mean Corpuscular Hemoglobin 30.4 pg (28.0-32.0); Mean Corpuscular Hgb Conc. 33.8 g/dL (32.0-36.0); Mean Corpuscular Volume 89.8 fL (80.0-100.0); Monocytes # (auto) 0.4 10 ^3/uL (0-1.3); Monocytes % (auto) 8.6 % (0.0-12.0); Neutrophils # (auto) 2.9 10 ^3/uL (1.6-8.6); Neutrophils % (auto) 59.2 % (37.0-80.0); Platelet Count (auto) 189 10^3/uL (140-450); Red Blood Cells 4.36 10^6/uL (4.0-5.20)
[2025-02-13 09:31] LABS: Alanine Aminotransferase 11 U/L (7-40); Albumin 4.5 g/dL (3.2-4.8); Anion Gap 10 (5-15); Aspartate Aminotransferase 14 U/L (13-40); BUN/Creatinine Ratio 15.9 (10.0-20.0); Blood Urea Nitrogen 11 mg/dL (9-23); Calcium 10.4 mg/dL (8.7-10.4); Carbon Dioxide 28 mmol/L (20-31); Chloride 106 mmol/L (98-107); Cholesterol 188 mg/dL (< 200); Glucose 96 mg/dL (74-106); Potassium 4.1 mmol/L (3.5-5.1); Sodium 144 mmol/L (136-145); Total Protein 6.7 g/dL (5.7-8.2); Triglycerides 75 mg/dL (< 150)
[2025-02-13 09:32] LABS: Bilirubin, Total 0.8 mg/dL (0.2-1.0)
[2025-02-13 09:38] LABS: Alkaline Phosphatase 129 U/L (46-116); HDL Cholesterol 76 mg/dL (40-59); LDL Cholesterol 105 mg/dL (< 100)
== END | disposition home or self-care (01) ==
LOC: LAB 08:28
PROVIDERS: ATTEND Nurse Practitioner Family
DX: I10 Essential (primary) hypertension (principal); E66.9 Obesity, unspecified; Z00.01 Encounter for general adult medical examination with abnormal findings
CPT/HCPCS: 36415; 80053; 80061; 82306; 84443; 85025

== ENCOUNTER 2025-06-14 09:53 | Inpatient (IN) | payer MEDICAID ==
[~2025-06-14] VITALS: Ht 157.5 cm; Wt 92.0 kg
--- NOTE | 2025-06-14 10:27 | ED.PDOC ---
History of Present Illness(SKN HPI Comments This is a 60 year old female presenting to the ED with chief complaint of abscess. Patient reports that she has been dealing with a recurrent, painful abscess to her left breast for the past 1.5 weeks. Patient relays that she was prescribed cephalexin by an urgent care a week ago, but no relief has been noted. Patient states she was advised to follow up with her PCP, which she did, and a general surgeon for possible I&D and removal of the abscess capsule, but she has not been able to establish an appt with a surgeon due to insurance issues. Patient notes having history of breast cancer, currently in remission and on anastrazole at this time. Patient denies any bleeding, fever, chills, or further symptoms at this time. Chief Complaint: Abscess Time Seen by MD: 10:25 Primary Care Provider: LASHAWN History of Present Illness: Nurses Notes, Medications, Allergies Allergies: Coded Allergies: Sulfamethoxazole w/Trimethoprim (Verified Allergy, Unknown, 05/08/22) Home Meds Active Scripts Azithromycin (Zithromax Z-Issac) 250 Mg Tab, 250 MG PO DAILY, #6 TAB Prov:MAIK MCDONOUGH MD 07/09/22 Fluticasone Propionate (Nasal) (Fluticasone Propionate) 50 Mcg/Act Spr, 50 MCG EACHNOSTRI [id number] PRN, #15.8 ML Prov:MAIK MCDONOUGH MD 07/09/22 Reported Medications Senna (Senna Lax) 8.6 Mg Tab, 8.6 MG PO BIDPRN PRN for FOR CONSTIPATION, MG 07/07/22 Pantoprazole Sodium Sesquihydr (Protonix) 40 Mg Tab, 40 MG PO DAILY, #30 TAB 06/20/22 Paroxetine Hydrochloride (Paroxetine Hydrochloride) 10 Mg Tab, 10 MG PO, TAB 05/09/22 Ondansetron HCl (Ondansetron Hydrochloride) 8 Mg Tab, 1 TAB PO TID 05/09/22 Dexamethasone (Dexamethasone) 4 Mg Tab, PO 05/09/22 Information Source: Patient Mode of Arrival: Ambulatory Severity: Moderate Timing: Weeks Duration: Since onset Prehospital treatment: None Location: Other (Left breast) Mechanism: Spontaneous Onset Object: None Condition of Object: None Retained Foreign Body: No Wound Type: Abscess Immunization Status of Animal: NA Tetanus: Unknown History of: None Past Medical History PAST MEDICAL HISTORY: Cancer (breast, in remission), Depression, GERD Surgical History: BTL, Cholecystectomy, Surgical History (Other): R breast surgery, Carpal Tunnel MUSEUM ATTENDANT History: Denies all MUSEUM ATTENDANT Hx Family History Family History: Reviewed,noncontributory to illness Social History Smoker: Non-Smoker Alcohol: Denies ETOH Use Drugs: Denies Drug Use Lives In: Home Constitutional: denies: chills, diaphoresis, fatigue, fever, malaise, sweats, weakness, others EENTM: denies: blurred vision, double vision, ear bleeding, ear discharge, ear drainage, ear pain, ear ringing, eye pain, eye redness, hearing loss, mouth pain, mouth swelling, nasal discharge, nose bleeding, nose congestion, nose pain, photophobia, tearing, throat pain, throat swelling, voice changes, others Respiratory: denies: cough, hemoptysis, orthopnea, SOB at rest, shortness of breath, SOB with excertion, stridor, wheezing, others Cardiovascular: denies: chest pain, dizzy spells, diaphoresis, Dyspnea on exertion, edema, irregular heart beat, left arm pain, lightheadedness, palpitations, PND, syncope, others Gastrointestinal: denies: abdomen distended, abdominal pain, blood streaked bowels, constipated, diarrhea, dysphagia, difficulty swallowing, hematemesis, melena, nausea, poor appetite, poor fluid intake, rectal bleeding, rectal pain, vomiting, others Genitourinary: denies: abnormal vagina bleeding, burning, dyspareunia, dysuria, flank pain, frequency, hematuria, incontinence, pain, , vagina discharge, urgency, others Neurological: denies: dizziness, fainting, headache, left sided numbness, left sided weakness, numbness, paresthesia, pre-existing deficit, right sided numbness, right sided weakness, seizure, speech problems, tingling, tremors, weakness, others Musculoskeletal: denies: back pain, gout, joint pain, joint swelling, muscle pain, muscle stiffness, neck pain, others Integumetry: reports: others (Abscess to left breast); denies: bruises, change in color, change in hair/nails, dryness, laceration, lesions, lumps, rash, wounds Allergic/Immunocompromised: denies: Difficulty Healing, Frequent Infections, Hives, Itching, others Hematologic/Lymphatic: denies: anemia, blood clots, easy bleeding, easy bruising, swollen glands, others Endocrine: denies: excessive hunger, excessive sweating, excessive thirst, excessive urination, flushing, intolerance to cold, intolerance to heat, unexplained weight gain, unexplained weight loss, others Psychiatric: denies: anxiety, bipolar disorder, depression, hopeless, panic disorder, schizophrenia, sleepless, suicidal, others All Other Systems: Reviewed and Negative Physical Exam General Appearance: Mild Distress, Obese HEENT: Other (Pupils and face symmetric. Moist mucous membranes.) Neck: Full Range of Motion, Normal Inspection Respiratory: Lungs Clear, No Accessory Muscle Use, No Respiratory Distress, Normal Breath Sounds Cardiovascular: No Edema, No JVD, Regular Rate/Rhythm Breast Exam: (L) Mass, (L) Tenderness, Other (Left breast approximate 3 x 3 cm fluctuant erythematous tender mass at the 10 o'clock position) Gastrointestinal: Non Tender, Soft Genitalia: Deferred Pelvic: Deferred Rectal: Deferred Extremities: Normal inspection, Normal range of motion, Non-tender, No pedal edema Neurologic: Alert (Oriented x4), Normal Affect, Normal Mood, Other (Ambulatory) Cerebellar Function: NOT DONE Reflexes: NOT DONE Skin: Dry, Normal Color, Warm Lymphatic: NOT DONE Was a procedure done? Was a procedure done?: No Differential Diagnosis (INTG) Differential Diagnosis: Abscess, Cellulitis, Other (Sepsis, solid mass, among others) X-Ray, Labs, Meds, VS Vital Signs Date Time Temp Pulse Resp B/P (MAP) Pulse Ox O2 Delivery O2 Flow Rate FiO2 06/14/25 09:55 97.9 88 16 132/62 97 97.9 Lab Test 06/14/25 10:35 Range/Units White Blood Count 6.7 4.4-10.8 10^3/uL Red Blood Count 4.46 4.0-5.20 10^6/uL Hemoglobin 13.3 12.2-16.2 g/dL Hematocrit 39.7 36.0-46.0 % Mean Corpuscular Volume 89.1 80.0-100.0 fL Mean Corpuscular Hemoglobin 29.9 28.0-32.0 pg Mean Corpuscular Hemoglobin Concent 33.6 32.0-36.0 g/dL Red Cell Distribution Width 13.4 11.8-14.3 % Platelet Count 242 140-450 10^3/uL Mean Platelet Volume 8.0 6.9-10.8 fL Neutrophils (%) (Auto) 66.5 37.0-80.0 % Lymphocytes (%) (Auto) 19.9 10.0-50.0 % Monocytes (%) (Auto) 8.9 0.0-12.0 % Eosinophils (%) (Auto) 3.9 0.0-7.0 % Basophils (%) (Auto) 0.8 0.0-2.0 % Neutrophils # (Auto) 4.5 1.6-8.6 10 ^3/uL Lymphocytes # (Auto) 1.3 0.4-5.4 10 ^3/uL Monocytes # (Auto) 0.6 0-1.3 10 ^3/uL Eosinophils # (Auto) 0.3 0-0.8 10 ^3/uL Basophils # (Auto) 0.1 0-0.2 10 ^3/uL Nucleated Red Blood Cells 0.1 % Sodium Level 142 136-145 mmol/L Potassium Level 3.8 3.5-5.1 mmol/L Chloride Level 106 98-107 mmol/L Carbon Dioxide Level 26 20-31 mmol/L Anion Gap 10 5-15 Blood Urea Nitrogen 10 9-23 mg/dL Creatinine 0.66 0.550-1.02 mg/dL Glomerular Filtration Rate Calc 102 >90 mL/min BUN/Creatinine Ratio 15.2 10.0-20.0 Serum Glucose 104 74-106 mg/dL Calcium Level 9.5 8.7-10.4 mg/dL Current Medications Medications (Trade) Dose Ordered Sig/Chele Route Start Time Stop Time Status Last Admin Acetaminophen/ Hydrocodone Bitart (Hall 5/325MG Tab) 1 tab ONCE ONCE PO 06/14/25 10:30 06/14/25 10:31 DC 06/14/25 10:35 Vancomycin HCl 250 ml @ 250 mls/hr ONCE ONCE IV 06/14/25 10:30 06/14/25 11:29 DC 06/14/25 10:34 PROCEDURE(s): LBRST - L BREAST ULTRASOUND REASON: eval L breast abscess ORDER NUMBER(s): [id number], ACCESSION NUMBER(s): [id number] US OF THE RIGHT BREAST INDICATION: eval L breast abscess TECHNIQUE: Limited grayscale and color images of the left breast at the 10:00 a.m. region in the area of interest COMPARISON: Prior exam dated: FINDINGS: At the 10 o'clock position within the left breast there is a 2.3 by 0.9 by 2 cm hypoechoic fluid collection with overlying skin thickening. IMPRESSION: 2.3 cm left superficial breast fluid collection suspicious for abscess at the 10 o'clock position. X-Ray, Labs, Meds, VS Comment 60-year-old female history of right breast cancer in remission and recurrent left breast abscesses presenting with a persistent left breast abscess for the last week and a half despite treatment with oral antibiotics Vitals unremarkable Exam remarkable for an approximate 3 x 3 cm fluctuant mass at the 10 o'clock position on the left breast Rhythm strip independently interpreted by me: Sinus rhythm, rate 88, no ectopy. Left breast ultrasound: 2.3 cm left breast fluid collection Labs unremarkable Patient treated with the following in the ED: Hall 5/325 mg p.o., vancomycin 1 g p.o. On re-evaluation, pain has improved and vitals were stable. Plan is to admit the patient for IV antibiotics and surgical evaluation. Time of 1ST Reevaluation: 11:24 Reevaluation 1ST: Unchanged Patient Education/Counseling: Diagnosis, Treatment Family Education/Counseling: No Family Present SEPSIS Sepsis Screen Date sepsis recognized/suspect: Jun 14, 2025 Time Sepsis recognized/suspect: 954 Recent Procedure: No On Antibiotic Therapy: No Respiratory Rate >20: No Heart Rate >90: No Temp<36 C (96.8 F) or >38.3 C: No SBP <90 or MAP <65 mmHG: No New Acute Mental Status Change: No Is the patient on CPAP, BIPAP,: No Physician Orders Urinalysis (06/14/25 10:23) Blood Culture (06/14/25 10:23) L Breast Ultrasound (06/14/25 10:26) Vital Signs Date Time Temp Pulse Resp B/P (MAP) Pulse Ox O2 Delivery O2 Flow Rate FiO2 06/14/25 09:55 97.9 88 16 132/62 97 97.9 Laboratory Tests Test 06/14/25 10:35 White Blood Count 6.7 10^3/uL (4.4-10.8) Medications Medications Dose Ordered Sig/Chele Route Start Time Stop Time Status Last Admin Dose Admin Acetaminophen/ Hydrocodone Bitart 1 tab ONCE ONCE PO 06/14/25 10:30 06/14/25 10:31 DC 06/14/25 10:35 Vancomycin HCl 250 ml @ 250 mls/hr ONCE ONCE IV 06/14/25 10:30 06/14/25 11:29 DC 06/14/25 10:34 Departure 1 Departure Time of Disposition: 10:36 Impression: Primary Impression: Left breast abscess Disposition: ADMITTED INPATIENT Admit to: Med Surg Condition: Fair Critical Care Note Critical Care Time?: No Stability Stability form required: No Heart Score Heart Score: Heart Score Response (Comments) Value History N/A 0 EKG N/A 0 Age N/A 0 Risk Factors N/A 0 Troponin N/A 0 Total 0 I personally scribed for PRAVEENA GALEAS MD ([email or web address]) on 06/14/25 at 10:27. Electronically submitted by Nick Moeller ([email or web address]). I personally scribed for PRAVEENA GALEAS MD ([email or web address]) on 06/14/25 at 12:05. Electronically submitted by Nick Moeller ([email or web address]). PRAVEENA GALEAS MD Jun 14, 2025 10:27
[2025-06-14] MEDS: VANCOMYCIN 1GM/250ML KIT 250 ML IV ONE (10:34)
[2025-06-14] MEDS: HYDROcodone-ACET 5/325MG TAB PO ONE (10:35)
[2025-06-14 10:48] LABS: Hematocrit 39.7 % (36.0-46.0); Hemoglobin 13.3 g/dL (12.2-16.2); Mean Corpuscular Hemoglobin 29.9 pg (28.0-32.0); Mean Corpuscular Volume 89.1 fL (80.0-100.0); Nucleated Red Blood Cells % 0.1 %
[2025-06-14 11:21] LABS: Chloride 106 mmol/L (98-107); Potassium 3.8 mmol/L (3.5-5.1); Sodium 142 mmol/L (136-145)
[2025-06-14 11:22] LABS: Anion Gap 10 (5-15); Carbon Dioxide 26 mmol/L (20-31)
[2025-06-14 11:23] LABS: Calcium 9.5 mg/dL (8.7-10.4)
[2025-06-14 11:27] LABS: BUN/Creatinine Ratio 15.2 (10.0-20.0); Blood Urea Nitrogen 10 mg/dL (9-23); Glucose 104 mg/dL (74-106)
--- NOTE | 2025-06-14 11:38 | DVH ---
US OF THE RIGHT BREAST INDICATION: eval L breast abscess TECHNIQUE: Limited grayscale and color images of the left breast at the 10:00 a.m. region in the area of interest COMPARISON: Prior exam dated: FINDINGS: At the 10 o'clock position within the left breast there is a 2.3 by 0.9 by 2 cm hypoechoic fluid lashonda ection with overlying skin thickening. IMPRESSION: 2.3 cm left superficial breast fluid collection suspicious for abscess at the 10 o'clock position.
[2025-06-14] MEDS: SODIUM CHLORIDE 0.9% 1,000 ML IV SCH (15:00)
[2025-06-14] MEDS ORDERED: HYDROcodone-ACET 5/325MG TAB PO PRN (15:00)
[2025-06-14] MEDS ORDERED: VANCOMYCIN PER PHARMACY 0 MG IV SCH (15:00)
--- NOTE | 2025-06-14 15:56 | DVHHP2 ---
History of Present Illness Reason for Visit: Left breast abscess History of Present Illness This is a pleasant 60-year-old female with past medical history of breast cancer currently in remission, depression and GERD presenting to the ER with chief complaint of left breast abscess for the past 1-1/2 weeks. She reports that she went to an urgent care a week ago and was prescribed cephalexin but no relief has been noted as the abscess has not improved. Due to insurance issues the patient has been unable to see her PCP in which a referral to surgeon can be initiated. The patient is concerned about her symptoms and would like to be further evaluated and treated. The patient will be admitted under hospitalist care to the medical-surgical unit. The patient denies fever, chills, headache, dizziness, shortness of breath, palpitation, chest pain, nausea, vomiting, abdominal pain, diarrhea, constipation and other associated symptoms. The plan has been discussed with the patient and daughter who is with her in which all questions concerns have been addressed. GI: GERD Psych: Depression Past Medical History Breast cancer currently in remission Past Surgical History: Cholecystectomy, , Tubal Ligation Past Surgical History Bilateral carpal tunnel surgery Right mastectomy Family History: None Smoke: No ALCOHOL: none Drugs: None Lives: with Family Domestic Violence: Neg Review of Systems Other Left breast abscess Allergies: Coded Allergies: Sulfamethoxazole w/Trimethoprim (Verified Allergy, Unknown, 05/08/22) Medications Current Medications Medications Dose Ordered Sig/Chele Route Start Time Stop Time Status Last Admin Dose Admin Vancomycin HCl 0 ml @ 0 mls/hr UD IV 06/14/25 15:00 Sodium Chloride 1,000 ml @ 100 mls/hr Q10H IV 06/14/25 15:00 Acetaminophen/ Hydrocodone Bitart 1 tab Q4HP PRN PO 06/14/25 15:00 Zinc Sulfate 220 mg DAILY PO 06/15/25 10:00 Ascorbic Acid 500 mg BID PO 06/14/25 22:00 Multivitamins 1 tab DAILY PO 06/15/25 10:00 Acetaminophen 650 mg Q6HP PRN PO 06/14/25 15:00 Vancomycin HCl 250 ml @ 250 mls/hr Q12H IV 06/14/25 22:00 Exam Vital Signs Vital Signs Date Time Temp Pulse Resp B/P (MAP) Pulse Ox O2 Delivery O2 Flow Rate FiO2 06/14/25 09:55 97.9 88 16 132/62 97 97.9 General Appearance: Alert, Oriented X3, Cooperative, No acute distress HEENT: Atraumatic, PERRLA, Mucous membr. moist/pink Respiratory: Clear to auscultation, Normal air movement Cardiovascular: Regular rate, Normal S1, Normal S2, No murmurs Abdominal: Normal bowel sounds, Soft, No tenderness, No hepatospenomegaly, No masses Extremities: No clubbing, No cyanosis, No edema, Normal pulses, No tenderness/swelling Neuro: Normal gait, Normal speech, Strength at 5/5 X4 ext, Normal tone, Sensation intact, Cranial nerves 3-12 NL Psych/Mental Status: Mental status NL, Mood NL Labs/Xrays Labs Test 06/14/25 10:35 Range/Units White Blood Count 6.7 4.4-10.8 10^3/uL Red Blood Count 4.46 4.0-5.20 10^6/uL Hemoglobin 13.3 12.2-16.2 g/dL Hematocrit 39.7 36.0-46.0 % Mean Corpuscular Volume 89.1 80.0-100.0 fL Mean Corpuscular Hemoglobin 29.9 28.0-32.0 pg Mean Corpuscular Hemoglobin Concent 33.6 32.0-36.0 g/dL Red Cell Distribution Width 13.4 11.8-14.3 % Platelet Count 242 140-450 10^3/uL Mean Platelet Volume 8.0 6.9-10.8 fL Neutrophils (%) (Auto) 66.5 37.0-80.0 % Lymphocytes (%) (Auto) 19.9 10.0-50.0 % Monocytes (%) (Auto) 8.9 0.0-12.0 % Eosinophils (%) (Auto) 3.9 0.0-7.0 % Basophils (%) (Auto) 0.8 0.0-2.0 % Neutrophils # (Auto) 4.5 1.6-8.6 10 ^3/uL Lymphocytes # (Auto) 1.3 0.4-5.4 10 ^3/uL Monocytes # (Auto) 0.6 0-1.3 10 ^3/uL Eosinophils # (Auto) 0.3 0-0.8 10 ^3/uL Basophils # (Auto) 0.1 0-0.2 10 ^3/uL Nucleated Red Blood Cells 0.1 % Sodium Level 142 136-145 mmol/L Potassium Level 3.8 3.5-5.1 mmol/L Chloride Level 106 98-107 mmol/L Carbon Dioxide Level 26 20-31 mmol/L Anion Gap 10 5-15 Blood Urea Nitrogen 10 9-23 mg/dL Creatinine 0.66 0.550-1.02 mg/dL Glomerular Filtration Rate Calc 102 >90 mL/min BUN/Creatinine Ratio 15.2 10.0-20.0 Serum Glucose 104 74-106 mg/dL Calcium Level 9.5 8.7-10.4 mg/dL ORDERING PHYSICIAN: PRAVEENA GALEAS MD PROCEDURE(s): LBRST - L BREAST ULTRASOUND REASON: eval L breast abscess ORDER NUMBER(s): [id number], ACCESSION NUMBER(s): [id number] US OF THE RIGHT BREAST INDICATION: eval L breast abscess TECHNIQUE: Limited grayscale and color images of the left breast at the 10:00 a.m. region in the area of interest COMPARISON: Prior exam dated: FINDINGS: At the 10 o'clock position within the left breast there is a 2.3 by 0.9 by 2 cm hypoechoic fluid collection with overlying skin thickening. IMPRESSION: 2.3 cm left superficial breast fluid collection suspicious for abscess at the 10 o'clock position. ATED BY: EZE ESTEVEZ MD DICTATED DATE/TIME: 06/14/251136 SIGNED BY: EZE ESTEVEZ MD SIGNED DATE/TIME: 06/14/25 113 CC: SEPSIS Sepsis Screen Date sepsis recognized/suspect: Jun 14, 2025 Time Sepsis recognized/suspect: 954 Recent Procedure: No On Antibiotic Therapy: No Respiratory Rate >20: No Heart Rate >90: No Temp<36 C (96.8 F) or >38.3 C: No SBP <90 or MAP <65 mmHG: No New Acute Mental Status Change: No Is the patient on CPAP, BIPAP,: No Physician Orders Urinalysis (06/14/25 10:23) Blood Culture (06/14/25 10:23) L Breast Ultrasound (06/14/25 10:26) Vancomycin Per Pharmacy (06/14/25 15:00) Admit (06/14/25 14:49) 2 Gm Sodium Diet (06/14/25 Dinner) Sodium Chloride 0.9% (06/14/25 15:00) Hydrocodone-Acet 5/325mg Tab (Norman 5/32 (06/14/25 15:00) Zinc Sulfate (06/15/25 10:00) Ascorbic Acid Tablet (Vitamin C Tablet) (06/14/25 22:00) Multiple Vitamin Tablet (Mvi Tab) (06/15/25 10:00) Complete Blood Count (06/15/25 04:00) Comprehensive Metabolic Panel (06/15/25 04:00) Condition: Fair (06/14/25 14:49) Acetaminophen Tablet (Tylenol Tablet) (06/14/25 15:00) Bedrest With Bathroom Privileg (06/14/25 14:49) Wound Culture W/ Gs (06/14/25 14:53) Vancomycin 1gm/250ml Kit (06/14/25 22:00) Creatinine (06/16/25 09:00) Vancomycin,Trough (06/16/25 09:00) Vancomycin Per Pharmacy Protoc (06/16/25 09:00) Vital Signs Date Time Temp Pulse Resp B/P (MAP) Pulse Ox O2 Delivery O2 Flow Rate FiO2 06/14/25 09:55 97.9 88 16 132/62 97 97.9 Laboratory Tests Test 06/14/25 10:35 White Blood Count 6.7 10^3/uL (4.4-10.8) Medications Medications Dose Ordered Sig/Chele Route Start Time Stop Time Status Last Admin Dose Admin Acetaminophen/ Hydrocodone Bitart 1 tab ONCE ONCE PO 06/14/25 10:30 06/14/25 10:31 DC 06/14/25 10:35 1 TAB Vancomycin HCl 250 ml @ 250 mls/hr ONCE ONCE IV 06/14/25 10:30 06/14/25 11:29 DC 06/14/25 10:34 250 MLS/HR Assessment/Plan Assessment/Plan Left breast abscess--patient to ED with chief complaint of left breast abscess times 1-1/2 weeks Went to urgent care a week ago and was prescribed cephalexin with no improvement Due to insurance issues unable to seek PCP to get referral for surgeon Admit to medical-surgical unit Reviewed CBC which is normal Reviewed BMP which is normal Type and crossmatch pending PT INR pending Reviewed left breast ultrasound which confirms abscess at 10 o'clock position IV hydration IV vancomycin per pharmacy Pain medication as needed Surgical consult with Dr. Ezra Robles for evaluation and recommendation possible I and D GERD Continue Protonix as prescribed Depression Continue anti depressant Reconcile home meds Labs in a.m. DVT prophylaxis not indicated patient ambulatory PUD prophylaxis Discussed plan of care with the patient and daughter in which all questions concerns have been addressed Plan discussed with: Patient, Daughter My Orders Orders - MICHAEL CHAMBERLAIN Procedure Category Date Status Time Vancomycin Per PHA 06/14/25 In Process Pharmacy 15:00 Admit ADMIT 06/14/25 Transmitted 14:49 2 Gm Sodium Diet DIET 06/14/25 Transmitted Dinner Sodium Chloride 0.9% PHA 06/14/25 In Process 15:00 Hydrocodone-Acet PHA 06/14/25 In Process 5/325mg Tab ([place] 15:00 Zinc Sulfate PHA 06/15/25 In Process 10:00 Ascorbic Acid Tablet PHA 06/14/25 In Process (Vitamin C Tablet) 22:00 Multiple Vitamin PHA 06/15/25 In Process Tablet (Mvi Tab) 10:00 Complete Blood Count LAB 06/15/25 Verified 04:00 Comprehensive LAB 06/15/25 Verified Metabolic Panel 04:00 Condition: Fair LISA 06/14/25 In Process 14:49 Acetaminophen Tablet PHA 06/14/25 In Process (Tylenol Tablet) 15:00 Bedrest With Bathroom LISA 06/14/25 In Process Privileg 14:49 Wound Culture W/ Gs [place] 06/14/25 Logged 14:53 Vancomycin 1gm/250ml PHA 06/14/25 In Process Kit 22:00 Creatinine LAB 06/16/25 Verified 09:00 Vancomycin,Trough LAB 06/16/25 Verified 09:00 Vancomycin Per LISA 06/16/25 In Process Pharmacy Protoc 09:00 Date of Service: Jun 14, 2025 Billing Provider: MICHAEL CHAMBERLAIN Common Visit Codes: [id number] INP/OBS CARE (HIGH) MICHAEL CHAMBERLAIN Jun 14, 2025 15:56
[2025-06-14 16:37] LABS: INR 0.95 (0.9-1.15); Prothrombin Time 10.1 sec (9.3-11.8)
[2025-06-14 23:31] VITALS: BP 157/82; PULSE 72; RESP 19; TEMP 97.6; O2SAT 100
[2025-06-14] MEDS: ASCORBIC ACID 500 MG TAB PO SCH (23:50)
[2025-06-14] MEDS: VANCOMYCIN 1GM/250ML KIT 250 ML IV SCH (23:51)
[2025-06-15] VITALS (9 sets, daily range): BP systolic 115–157; BP diastolic 76–82; PULSE 52–80; RESP 14–19; TEMP 97.3–98.4; O2SAT 95–100
[2025-06-15 02:08] LABS: Urine Protein, UAD Normal (Negative)
[2025-06-15 08:13] LABS: Hematocrit 37.1 % (36.0-46.0); Hemoglobin 12.6 g/dL (12.2-16.2); Mean Corpuscular Hemoglobin 30.5 pg (28.0-32.0); Mean Corpuscular Volume 89.9 fL (80.0-100.0); Nucleated Red Blood Cells % 0.0 %
[2025-06-15 08:22] LABS: Alanine Aminotransferase 12 U/L (7-40); Albumin 4.1 g/dL (3.2-4.8); Anion Gap 9 (5-15); BUN/Creatinine Ratio 12.5 (10.0-20.0); Calcium 9.2 mg/dL (8.7-10.4); Carbon Dioxide 29 mmol/L (20-31); Chloride 106 mmol/L (98-107); Glucose 82 mg/dL (74-106); Potassium 4.2 mmol/L (3.5-5.1); Sodium 144 mmol/L (136-145); Total Protein 6.5 g/dL (5.7-8.2)
[2025-06-15 08:23] LABS: Bilirubin, Total 0.7 mg/dL (0.2-1.0)
[2025-06-15 08:24] LABS: Alkaline Phosphatase 116 U/L (46-116); Blood Urea Nitrogen 8 mg/dL (9-23)
[2025-06-15] MEDS: NITROGLYCERIN 0.4 MG SL TAB SL ONE (08:28)
[2025-06-15] MEDS: MULTIPLE VITAMIN TAB PO SCH (09:06)
[2025-06-15] MEDS: ZINC SULFATE 220mg CAP or TAB PO SCH (09:06)
[2025-06-15] MEDS: FAMOTIDINE 20 MG TAB PO SCH (10:00)
[2025-06-15] MEDS: AMPICILLIN & SULBACTAM SODIUM 3 GM in SODIUM CHL 0.9% 100 ML IV SCH (13:56)
--- NOTE | 2025-06-15 14:08 | DVHPN2 ---
Subjective Seen at bedside, doing well. Reviewed: H&P Changes from previous H/P or p: No Changes General: Per HPI Objective Vitals Vital Signs Date Time Temp Pulse Resp B/P (MAP) Pulse Ox O2 Delivery O2 Flow Rate FiO2 06/15/25 13:09 98.3 70 16 135/81 (99) 98 98.3 06/15/25 08:00 Room Air* 0 21 Intake/Output Intake and Output 06/15/25 07:00 Intake Total 480 ml Balance 480 ml Intake Oral 230 ml IV Total 250 ml # Voids 3 Exam General Appearance: Alert, Oriented X3, Cooperative, No acute distress HEENT: Atraumatic, PERRLA, Mucous membr. moist/pink Respiratory: Clear to auscultation, Normal air movement Cardiovascular: Regular rate, Normal S1, Normal S2, No murmurs Abdominal: Normal bowel sounds, Soft, No tenderness, No hepatospenomegaly, No masses Extremities: No clubbing, No cyanosis, No edema, Normal pulses, No tenderness/swelling Neuro: Normal gait, Normal speech, Strength at 5/5 X4 ext, Normal tone, Sensation intact, Cranial nerves 3-12 NL Psych/Mental Status: Mental status NL, Mood NL Medications Current Medications Medications Dose Ordered Sig/Chele Route Start Time Stop Time Status Last Admin Dose Admin Vancomycin HCl 0 ml @ 0 mls/hr UD IV 06/14/25 15:00 Sodium Chloride 1,000 ml @ 100 mls/hr Q10H IV 06/14/25 15:00 06/15/25 01:10 100 MLS/HR Acetaminophen/ Hydrocodone Bitart 1 tab Q4HP PRN PO 06/14/25 15:00 Zinc Sulfate 220 mg DAILY PO 06/15/25 10:00 06/15/25 09:06 220 MG Ascorbic Acid 500 mg BID PO 06/14/25 22:00 06/15/25 09:06 500 MG Multivitamins 1 tab DAILY PO 06/15/25 10:00 06/15/25 09:06 1 TAB Acetaminophen 650 mg Q6HP PRN PO 06/14/25 15:00 Vancomycin HCl 250 ml @ 250 mls/hr Q12H IV 06/14/25 22:00 06/15/25 09:08 250 MLS/HR Famotidine 20 mg DAILY PO 06/15/25 10:00 06/15/25 10:00 20 MG Ampicillin Sodium/ Sulbactam Sodium 3 gm/Sodium Chloride 100 ml @ 100 mls/hr Q6H IV 06/15/25 11:00 Laboratory Results Laboratory Tests 06/15/25 06:43 Chemistry Test 06/15/25 06:43 Albumin 4.1 g/dL (3.2-4.8) Calcium Level 9.2 mg/dL (8.7-10.4) Total Protein 6.5 g/dL (5.7-8.2) Coagulation Test 06/14/25 16:08 Prothrombin Time 10.1 sec (9.3-11.8) Prothrombin Time INR 0.95 (0.9-1.15) LFT Test 06/15/25 06:43 Alanine Aminotransferase (ALT) 12 U/L (7-40) Alkaline Phosphatase 116 U/L (46-116) Aspartate Amino Transferase (AST) 19 U/L (13-40) Total Bilirubin 0.7 mg/dL (0.2-1.0) Urinalysis Test 06/15/25 00:26 Urine Color Colorless (Yellow) Urine Clarity Clear (Clear) Urine pH 5.0 (5.0-9.0) Urine Specific [place] 1.006 (1.001-1.035) Urine Protein Normal (Negative) Urine Ketones Negative (Negative) Urine Blood Normal /uL (Negative) Urine Nitrite Negative (Negative) Urine Bilirubin Negative (Negative) Urine Urobilinogen Normal mg/dL (Negative) Urine Leukocyte Esterase Negative /uL (Negative) Urine Glucose Normal mg/dL (Normal) Microbiology Microbiology Date/Time Source Procedure Growth Status 06/14/25 10:30 Blood Blood Culture - Preliminary NO GROWTH AFTER 24 HOURS OF INCUBATION. Resulted Labs and/or images reviewed: Labs reviewed by me, Image(s) reviewed by me Assessment/Plan Assessment/Plan 60-year-old female with past medical history of breast cancer currently in remission, depression and GERD presenting to the ER with chief complaint of left breast abscess for the past 1-1/2 weeks. She reports that she went to an urgent care a week ago and was prescribed cephalexin but no relief has been noted as the abscess has not improved. Due to insurance issues the patient has been unable to see her PCP in which a referral to surgeon can be initiated. The patient is concerned about her symptoms and would like to be further evaluated and treated. The patient will be admitted under hospitalist care to the medical-surgical unit. The patient denies fever, chills, headache, dizziness, shortness of breath, palpitation, chest pain, nausea, vomiting, abdominal pain, diarrhea, constipation and other associated symptoms. The plan has been discussed with the patient and daughter who is with her in which all questions concerns have been addressed. 06/15: Patient has chest wall/breast abscess, almost sternal region. Area is erythematous induration. Patient has history of cancer with right mastectomy, possible immunosuppression, currently on 3/5 years of anastrozole. Surgery to eval today. Continue IV antibiotics vancomycin/Unasyn. Escalated diet from cardiac to regular, no history of CHF for diabetes. Left breast abscess evident on ultrasound. Left breast /chest wall abscess and/or cyst GERD Depression Plan: IV antibiotics Prn analgesia Prn antiemetics IV fluids Continue diet Code continue home medications Med surge Full Plan discussed with: Patient My Orders Orders - NELL MILES MD Procedure Category Date Status Time Ampicillin & PHA 06/15/25 In Process Sulbactam Sodium 11:00 Date of Service: Jun 15, 2025 Billing Provider: NELL MILES MD Common Visit Codes: [id number] INP/OBS CARE(HIGH) NELL MILES MD Jun 15, 2025 14:08
--- NOTE | 2025-06-15 15:34 | DVHINCON2 ---
Date of service: Jun 15, 2025 Family History: Diabetes mellitus G8 MOTHER G8 SISTER G8 SISTER FH: myocardial infarction G8 FATHER Glaucoma G8 FATHER Hypercholesterolemia G8 SISTER Thyroid disease G8 SISTER Allergies: Coded Allergies: Sulfamethoxazole w/Trimethoprim (Verified Allergy, Unknown, 05/08/22) Home Meds Active Scripts Azithromycin (Zithromax Z-Issac) 250 Mg Tab, 250 MG PO DAILY, #6 TAB Prov:MAIK MCDONOUGH MD 07/09/22 Fluticasone Propionate (Nasal) (Fluticasone Propionate) 50 Mcg/Act Spr, 50 MCG EACHNOSTRI [id number] PRN, #15.8 ML Prov:MAIK MCDONOUGH MD 07/09/22 Reported Medications Senna (Senna Lax) 8.6 Mg Tab, 8.6 MG PO BIDPRN PRN for FOR CONSTIPATION, MG 07/07/22 Pantoprazole Sodium Sesquihydr (Protonix) 40 Mg Tab, 40 MG PO DAILY, #30 TAB 06/20/22 Paroxetine Hydrochloride (Paroxetine Hydrochloride) 10 Mg Tab, 10 MG PO, TAB 05/09/22 Ondansetron HCl (Ondansetron Hydrochloride) 8 Mg Tab, 1 TAB PO TID 05/09/22 Dexamethasone (Dexamethasone) 4 Mg Tab, PO 05/09/22 Current Medications Current Medications Medications (Trade) Dose Ordered Sig/Chele Route PRN Reason Start Time Stop Time Status Last Admin Zinc Sulfate 220 mg DAILY PO 06/15/25 10:00 06/15/25 09:06 Ascorbic Acid (Vitamin C Tablet) 500 mg BID PO 06/14/25 22:00 06/15/25 09:06 Multivitamins (Mvi Tab) 1 tab DAILY PO 06/15/25 10:00 06/15/25 09:06 Vancomycin HCl 250 ml @ 250 mls/hr Q12H IV 06/14/25 22:00 06/15/25 09:08 Famotidine (Pepcid Tablet) 20 mg DAILY PO 06/15/25 10:00 06/15/25 10:00 Ampicillin Sodium/ Sulbactam Sodium 3 gm/Sodium Chloride 100 ml @ 100 mls/hr Q6H IV 06/15/25 11:00 06/15/25 13:56 Ondansetron HCl (Zofran) 4 mg Q4HPRN PRN IV NAUSEA / VOMITING 06/15/25 14:45 UNV Vital Signs Vital Signs Date Time Temp Pulse Resp B/P (MAP) Pulse Ox O2 Delivery O2 Flow Rate FiO2 06/15/25 13:09 98.3 70 16 135/81 (99) 98 98.3 06/15/25 08:00 Room Air* 0 21 Labs/Diagnostic Data Labs Test 06/15/25 06:43 06/15/25 00:26 06/14/25 17:50 06/14/25 16:08 Range/Units White Blood Count 6.6 4.4-10.8 10^3/uL Red Blood Count 4.12 4.0-5.20 10^6/uL Hemoglobin 12.6 12.2-16.2 g/dL Hematocrit 37.1 36.0-46.0 % Mean Corpuscular Volume 89.9 80.0-100.0 fL Mean Corpuscular Hemoglobin 30.5 28.0-32.0 pg Mean Corpuscular Hemoglobin Concent 34.0 32.0-36.0 g/dL Red Cell Distribution Width 13.4 11.8-14.3 % Platelet Count 206 140-450 10^3/uL Mean Platelet Volume 8.2 6.9-10.8 fL Neutrophils (%) (Auto) 67.7 37.0-80.0 % Lymphocytes (%) (Auto) 19.4 10.0-50.0 % Monocytes (%) (Auto) 9.4 0.0-12.0 % Eosinophils (%) (Auto) 3.0 0.0-7.0 % Basophils (%) (Auto) 0.5 0.0-2.0 % Neutrophils # (Auto) 4.5 1.6-8.6 10 ^3/uL Lymphocytes # (Auto) 1.3 0.4-5.4 10 ^3/uL Monocytes # (Auto) 0.6 0-1.3 10 ^3/uL Eosinophils # (Auto) 0.2 0-0.8 10 ^3/uL Basophils # (Auto) 0 0-0.2 10 ^3/uL Nucleated Red Blood Cells 0.0 % Sodium Level 144 136-145 mmol/L Potassium Level 4.2 3.5-5.1 mmol/L Chloride Level 106 98-107 mmol/L Carbon Dioxide Level 29 20-31 mmol/L Anion Gap 9 5-15 Blood Urea Nitrogen 8 L 9-23 mg/dL Creatinine 0.64 0.550-1.02 mg/dL Glomerular Filtration Rate Calc 102 >90 mL/min BUN/Creatinine Ratio 12.5 10.0-20.0 Serum Glucose 82 74-106 mg/dL Calcium Level 9.2 8.7-10.4 mg/dL Total Bilirubin 0.7 0.2-1.0 mg/dL Aspartate Amino Transferase (AST) 19 13-40 U/L Alanine Aminotransferase (ALT) 12 7-40 U/L Alkaline Phosphatase 116 46-116 U/L Total Protein 6.5 5.7-8.2 g/dL Albumin 4.1 3.2-4.8 g/dL Urine Color Colorless Yellow Urine Clarity Clear Clear Urine pH 5.0 5.0-9.0 Urine Specific [place] 1.006 1.001-1.035 Urine Protein Normal Negative Urine Ketones Negative Negative Urine Blood Normal Negative /uL Urine Nitrite Negative Negative Urine Bilirubin Negative Negative Urine Urobilinogen Normal Negative mg/dL Urine Leukocyte Esterase Negative Negative /uL Urine Glucose Normal Normal mg/dL POC Glucose 142 H 70-106 mg/dl Prothrombin Time 10.1 9.3-11.8 sec Prothrombin Time INR 0.95 0.9-1.15 Microbiology Date/Time Source Procedure Growth Status 06/14/25 10:30 Blood Blood Culture - Preliminary NO GROWTH AFTER 24 HOURS OF INCUBATION. Resulted Assessment [id number] R/O INFECTED CYST ANTERIOR CHEST MEDIAL TO LEFT BREAST IV ABX CONSIDER EMERGENT SURGERY BASED ON ONGOING EVAL Plan discussed with: Patient SULY SANTIAGO MD Jun 15, 2025 15:34
--- NOTE | 2025-06-15 17:02 | DVHINCON2 ---
DATE OF CONSULTATION: 06/15/2025 HISTORY OF PRESENT ILLNESS: This patient is 60-year-old coming in with a history of breast cancer and presenting with a swelling on the middle portion of her chest close to the left breast for the past 1-2 weeks and she got antibiotics for that. The redness did go down a little bit, but it is not resolved, so she got admitted and I was asked to see her. No nausea or vomiting. No constipation or diarrhea. No hematemesis or melena. No bleeding per rectum. PAST MEDICAL HISTORY: Breast cancer currently in remission. No diabetes or hypertension. PAST SURGICAL HISTORY: Cholecystectomy, , gallbladder surgery, tubal ligation, and carpal tunnel syndrome. PHYSICAL EXAMINATION: VITAL SIGNS: Afebrile, stable signs. HEENT: No evidence of pallor, cyanosis, or jaundice. NECK: Supple, nontender with no thyromegaly or lymphadenopathy. CHEST AND LUNGS: Clear. HEART: Within normal limits. ABDOMEN: Soft. NEUROLOGIC: Not assessed. EXTREMITIES: Unremarkable. ASSESSMENT: The upper chest reveals a possibly infected cyst on the medial side of the left breast. PLAN: To continue with the antibiotics, closed observation, consider emergent surgery based upon ongoing evaluation. Benefits and risks were discussed and consent obtained. MD DEEPIKA Tate/MYRTLE/OLGA TID: [id number] RECEIPT: [id number] cc:
--- NOTE | 2025-06-15 19:38 | DVH ---
CHEST RADIOGRAPH Indication: surgery Technique: Single frontal view of the chest was obtained COMPARISON: CT ANGIO CHEST CONTRAST on DOS: 07/06/22, CHEST PORTABLE on DOS: 07/06/22, CXRP on DOS: 1 , EKG on DOS: 07/06/22, CT ANGIO CHEST CONTRAST on DOS: 06/19/22 FINDINGS: Lungs and pleural spaces are clear. Cardiac silhouette and kee are within normal limits. Bones and s oft tissues demonstrate no significant abnormality. IMPRESSION: 1. No acute disease.
[2025-06-15] MEDS: ANASTRAZOLE 1 MG PO SCH (20:03)
[2025-06-16] VITALS (7 sets, daily range): BP systolic 128–145; BP diastolic 71–82; PULSE 61–78; RESP 12–18; TEMP 97.9–98.2; O2SAT 96–99
[2025-06-16 06:33] LABS: Hematocrit 35.5 % (36.0-46.0); Hemoglobin 12.0 g/dL (12.2-16.2); Mean Corpuscular Hemoglobin 30.6 pg (28.0-32.0); Mean Corpuscular Volume 90.3 fL (80.0-100.0); Nucleated Red Blood Cells % 0.1 %
[2025-06-16 06:36] LABS: Anion Gap 11 (5-15); Calcium 8.7 mg/dL (8.7-10.4); Carbon Dioxide 24 mmol/L (20-31); Potassium 3.9 mmol/L (3.5-5.1); Sodium 143 mmol/L (136-145)
[2025-06-16 06:42] LABS: Glucose 96 mg/dL (74-106)
[2025-06-16 06:48] LABS: BUN/Creatinine Ratio 9.6 (10.0-20.0); Blood Urea Nitrogen < 5 mg/dL (9-23); Chloride 108 mmol/L (98-107)
--- NOTE | 2025-06-16 08:53 | DVHPN2 ---
Progress Note Date Seen: Jun 16, 2025 Medical Necessity Reason Pt with a Central, PICC or Fol: No Objective vital signs Vital Sign Date Time Temp Pulse Resp B/P (MAP) Pulse Ox O2 Delivery O2 Flow Rate FiO2 06/16/25 08:46 98.1 61 15 145/82 (103) 99 98.1 06/16/25 08:00 Room Air* 0 21 Total Intake and Output 06/15/25 06/15/25 06/16/25 15:00 23:00 07:00 Intake Total 350 ml 1000 ml 800 ml Balance 350 ml 1000 ml 800 ml medications Current Medications Medications Dose Ordered Sig/Chele Route Start Time Stop Time Status Last Admin Dose Admin Vancomycin HCl 0 ml @ 0 mls/hr UD IV 06/14/25 15:00 Sodium Chloride 1,000 ml @ 100 mls/hr Q10H IV 06/14/25 15:00 06/15/25 21:10 100 MLS/HR Acetaminophen/ Hydrocodone Bitart 1 tab Q4HP PRN PO 06/14/25 15:00 Zinc Sulfate 220 mg DAILY PO 06/15/25 10:00 06/15/25 09:06 220 MG Ascorbic Acid 500 mg BID PO 06/14/25 22:00 06/15/25 21:10 500 MG Multivitamins 1 tab DAILY PO 06/15/25 10:00 06/15/25 09:06 1 TAB Acetaminophen 650 mg Q6HP PRN PO 06/14/25 15:00 Vancomycin HCl 250 ml @ 250 mls/hr Q12H IV 06/14/25 22:00 06/15/25 09:08 250 MLS/HR Famotidine 20 mg DAILY PO 06/15/25 10:00 06/15/25 10:00 20 MG Ampicillin Sodium/ Sulbactam Sodium 3 gm/Sodium Chloride 100 ml @ 100 mls/hr Q6H IV 06/15/25 11:00 06/16/25 04:49 100 MLS/HR Ondansetron HCl 4 mg Q4HPRN PRN IV 06/15/25 14:45 Patient Own Medication 1 DAILY@1999 PO 06/15/25 20:00 06/15/25 20:03 1 laboratory and microbiology Laboratory Tests 06/16/25 05:16 Test 06/16/25 05:16 Range/Units Serum Glucose 96 74-106 mg/dL Microbiology Date/Time Source Procedure Growth Status 06/14/25 10:30 Blood Blood Culture - Preliminary NO GROWTH AFTER 24 HOURS OF INCUBATION. Resulted Problem List/Assessment/Plan Problem List/Assessment/Plan AFEBRILE VSS LEFT BREAST MASS /CYST INFECTION PROCEED WITH INCISION AND DRAINAGE, POSSIBLE EXCISION LEFT BREAST MASS/CYST BENEFITS RISKS DISCUSSED PT CONSENTS Plan discussed with: Patient My Orders My Orders Orders - SULY SANTIAGO MD Procedure Category Date Status Time Npo (Nothing By DIET 06/16/25 Transmitted Mouth) Diet Breakfast Obtain Consent For: ORDERS 06/15/25 Transmitted 15:34 Obtain Consent For LISA 06/15/25 In Process Anesthesia 15:34 Chest Xray 1 View XY 06/15/25 Resulted 15:53 SULY SANTIAGO MD Jun 16, 2025 08:53
[2025-06-16] MEDS ORDERED: HYDROmorphone HCL 2 MG/ML VL/or syr ONE (10:08)
[2025-06-16] MEDS ORDERED: fentaNYL CITRATE 100 MCG/2 ML VL ONE (10:08)
[2025-06-16] MEDS ORDERED: MIDAZOLAM HCL 2MG/2ML 2ml VIAL (1mg/ml) ONE (10:09)
[2025-06-16] MEDS ORDERED: PROPOFOL 10 MG/ML 20 ML IV ONE (10:09)
[2025-06-16] MEDS ORDERED: LIDOCAINE 1% INJ PF 5ML AMP ONE (10:09)
[2025-06-16] MEDS ORDERED: SODIUM CHLORIDE LOCK 10 ML ONE (10:09)
[2025-06-16] MEDS ORDERED: ONDANSETRON HCL 4 MG/2 ML VIAL ONE (10:09)
[2025-06-16] MEDS ORDERED: MORPHINE SULFATE 4 MG/ML SYR/VIAL IV PRN (10:15)
[2025-06-16] MEDS: KETOROLAC TROMETH 30 MG/ML 1ML VIAL IV ONE (10:15)
[2025-06-16] MEDS ORDERED: MORPHINE SULFATE INJ 2 MG/ml SYRG IV PRN (10:15)
[2025-06-16] MEDS ORDERED: HYDROmorphone HCL 2 MG/ML VL/or syr IV PRN ×2 (10:15)
[2025-06-16] MEDS ORDERED: LIDOCAINE 2% TOPICAL JELLY 5 ML URJT TOP ONE (10:24)
[2025-06-16] MEDS: ceFAZolin 2 GM/D5W50ml 50 ML IV ONE (10:25)
[2025-06-16] MEDS: LIDOCAINE 1% HCL (LOCAL ANESTH.) INJ 20ML MDV ONE (10:42)
--- NOTE | 2025-06-16 11:08 | DVHOP2 ---
Operative Report [id number] LEFT BREAST ABSCESS/INFECTED CYST I/D ABOVE AND EXCISION LEFT BREAST MASS/CYST R APMELA NO ASSIST EBL 5 CC ONE DRAIN NO COMPLICATIONS STABLE TRANSFER TO REC ROOM SULY SANTIAGO MD Jun 16, 2025 11:08
--- NOTE | 2025-06-16 11:26 | DVHOP ---
DATE OF SURGERY: 06/16/2025 PREOPERATIVE DIAGNOSES: Left breast abscess, rule out infected left breast cyst. POSTOPERATIVE DIAGNOSES: Left breast abscess, rule out infected left breast cyst. PROCEDURES: Incision and drainage of the abscess with excision of the left breast infected cyst. SURGEON: Marvin Robles MD PELOTA MAKER: None. ANESTHESIA: General. BLOOD LOSS: Close to 5 mL. DRAINS: One drain was used. COMPLICATIONS: No complications were encountered. DESCRIPTION OF PROCEDURE: The patient was prepped and draped in usual sterile fashion in the supine position and a transverse incision was applied in elliptical fashion encircling the soft tissue tumor mass. The abscess was drained out and suctioned. Cultures were sent and the presumably infected cyst was removed using sharp and Bovie dissection completely with clean gross margins and submitted for pathology. Area was secured for hemostasis. Irrigation performed and closure was done using Vicryl suture for the subcutaneous tissues. A 0.25-inch Herbert drain was applied to drain the subcutaneous tissues and brought out from the medial side of the incision and then securing the drain with a 3-0 silk suture and Monocryl suture was used for closing the skin incision on either side of the drain. Dressing was applied. The patient tolerated procedure well and was taken back to recovery room in stable condition. MD DEEPIKA Tate/VALENTINE/OLGA TID: [id number] RECEIPT: [id number] cc: Jarrett Giron MD
[2025-06-16] MEDS: METOCLOPRAMIDE HCL 5MG/ml INJ 2ml VIAL IV PRN (12:00)
[2025-06-16] MEDS: ONDANSETRON HCL 4 MG/2 ML VIAL IV PRN (12:35)
--- NOTE | 2025-06-16 16:02 | DVHPN2 ---
Subjective Seen at bedside, doing well. Reviewed: H&P Changes from previous H/P or p: No Changes General: Per HPI Objective Vitals Vital Signs Date Time Temp Pulse Resp B/P (MAP) Pulse Ox O2 Delivery O2 Flow Rate FiO2 06/16/25 12:10 69 12 148/61 (90) 99 06/16/25 11:09 97.1 97.1 06/16/25 11:09 Room Air 100 06/16/25 08:00 0 Intake/Output Intake and Output 06/16/25 07:00 Intake Total 2150 ml Balance 2150 ml Intake Oral 1600 ml IV Total 550 ml # Voids 4 Exam General Appearance: Alert, Oriented X3, Cooperative, No acute distress HEENT: Atraumatic, PERRLA, Mucous membr. moist/pink Respiratory: Clear to auscultation, Normal air movement Cardiovascular: Regular rate, Normal S1, Normal S2, No murmurs Abdominal: Normal bowel sounds, Soft, No tenderness, No hepatospenomegaly, No masses Extremities: No clubbing, No cyanosis, No edema, Normal pulses, No tenderness/swelling Neuro: Normal gait, Normal speech, Strength at 5/5 X4 ext, Normal tone, Sensation intact, Cranial nerves 3-12 NL Psych/Mental Status: Mental status NL, Mood NL Medications Current Medications Medications Dose Ordered Sig/Chele Route Start Time Stop Time Status Last Admin Dose Admin Vancomycin HCl 0 ml @ 0 mls/hr UD IV 06/14/25 15:00 Sodium Chloride 1,000 ml @ 100 mls/hr Q10H IV 06/14/25 15:00 06/16/25 12:35 100 MLS/HR Acetaminophen/ Hydrocodone Bitart 1 tab Q4HP PRN PO 06/14/25 15:00 Zinc Sulfate 220 mg DAILY PO 06/15/25 10:00 06/15/25 09:06 220 MG Ascorbic Acid 500 mg BID PO 06/14/25 22:00 06/15/25 21:10 500 MG Multivitamins 1 tab DAILY PO 06/15/25 10:00 06/15/25 09:06 1 TAB Acetaminophen 650 mg Q6HP PRN PO 06/14/25 15:00 Vancomycin HCl 250 ml @ 250 mls/hr Q12H IV 06/14/25 22:00 06/15/25 09:08 250 MLS/HR Famotidine 20 mg DAILY PO 06/15/25 10:00 06/16/25 12:40 20 MG Ampicillin Sodium/ Sulbactam Sodium 3 gm/Sodium Chloride 100 ml @ 100 mls/hr Q6H IV 06/15/25 11:00 06/16/25 15:56 100 MLS/HR Ondansetron HCl 4 mg Q4HPRN PRN IV 06/15/25 14:45 06/16/25 12:35 4 MG Patient Own Medication 1 DAILY@1999 PO 06/15/25 20:00 06/15/25 20:03 1 Laboratory Results Laboratory Tests 06/16/25 05:16 Chemistry Test 06/16/25 05:16 Calcium Level 8.7 mg/dL (8.7-10.4) Urinalysis Test 06/15/25 00:26 Urine Color Colorless (Yellow) Urine Clarity Clear (Clear) Urine pH 5.0 (5.0-9.0) Urine Specific [place] 1.006 (1.001-1.035) Urine Protein Normal (Negative) Urine Ketones Negative (Negative) Urine Blood Normal /uL (Negative) Urine Nitrite Negative (Negative) Urine Bilirubin Negative (Negative) Urine Urobilinogen Normal mg/dL (Negative) Urine Leukocyte Esterase Negative /uL (Negative) Urine Glucose Normal mg/dL (Normal) Microbiology Microbiology Date/Time Source Procedure Growth Status 06/14/25 10:30 Blood Blood Culture - Preliminary NO GROWTH AFTER 48 HOURS OF INCUBATION. Resulted Labs and/or images reviewed: Labs reviewed by me, Image(s) reviewed by me Assessment/Plan Assessment/Plan 60-year-old female with past medical history of breast cancer currently in remission, depression and GERD presenting to the ER with chief complaint of left breast abscess for the past 1-1/2 weeks. She reports that she went to an urgent care a week ago and was prescribed cephalexin but no relief has been noted as the abscess has not improved. Due to insurance issues the patient has been unable to see her PCP in which a referral to surgeon can be initiated. The patient is concerned about her symptoms and would like to be further evaluated and treated. The patient will be admitted under hospitalist care to the medical-surgical unit. The patient denies fever, chills, headache, dizziness, shortness of breath, palpitation, chest pain, nausea, vomiting, abdominal pain, diarrhea, constipation and other associated symptoms. The plan has been discussed with the patient and daughter who is with her in which all questions concerns have been addressed. 06/15: Patient has chest wall/breast abscess, almost sternal region. Area is erythematous induration. Patient has history of cancer with right mastectomy, possible immunosuppression, currently on 3/5 years of anastrozole. Surgery to eval today. Continue IV antibiotics vancomycin/Unasyn. Escalated diet from cardiac to regular, no history of CHF for diabetes. Left breast abscess evident on ultrasound. 06/16: Patient taken to OR today for drainage of abscess/infected cyst. We will follow up with surgery thereafter, continue IV antibiotics Diagnosis: Left breast /chest wall abscess and/or cyst GERD Depression Plan: IV antibiotics Prn analgesia Prn antiemetics IV fluids Continue diet Code continue home medications Med surge Full Plan discussed with: Patient My Orders Orders - NELL MILES MD Procedure Category Date Status Time Patients Own PHA 06/15/25 In Process Medication 20:00 Date of Service: Jun 16, 2025 Billing Provider: NELL MILES MD Common Visit Codes: [id number] INP/OBS CARE(HIGH) NELL MILES MD Jun 16, 2025 16:02
[2025-06-17 00:41] VITALS: BP 138/74; PULSE 77; RESP 18; TEMP 98.4; O2SAT 100
[2025-06-17 04:55] VITALS: BP 130/70; PULSE 74; RESP 18; TEMP 98.6; O2SAT 98
[2025-06-17 07:11] LABS: Hematocrit 35.1 % (36.0-46.0); Hemoglobin 11.9 g/dL (12.2-16.2); Mean Corpuscular Hemoglobin 30.0 pg (28.0-32.0); Mean Corpuscular Volume 88.6 fL (80.0-100.0); Nucleated Red Blood Cells % 0.0 %
[2025-06-17 08:00] VITALS: PULSE 75; RESP 18; O2SAT 98
[2025-06-17] MEDS: ACETAMINOPHEN 325 MG TAB PO PRN (08:43)
[2025-06-17 09:00] VITALS: BP 146/85; PULSE 71; RESP 17; TEMP 97.6; O2SAT 96
--- NOTE | 2025-06-17 11:48 | DVHPN2 ---
Subjective Seen at bedside, doing well. Reviewed: H&P Changes from previous H/P or p: No Changes General: Per HPI Objective Vitals Vital Signs Date Time Temp Pulse Resp B/P (MAP) Pulse Ox O2 Delivery O2 Flow Rate FiO2 06/17/25 09:00 97.6 71 17 146/85 (105) 96 97.6 06/17/25 08:00 Room Air* 0 21 Intake/Output Intake and Output 06/17/25 07:00 Intake Total 2710 ml Balance 2710 ml Intake Oral 1200 ml IV Total 1510 ml # Voids 2 Exam General Appearance: Alert, Oriented X3, Cooperative, No acute distress HEENT: Atraumatic, PERRLA, Mucous membr. moist/pink Respiratory: Clear to auscultation, Normal air movement Cardiovascular: Regular rate, Normal S1, Normal S2, No murmurs Abdominal: Normal bowel sounds, Soft, No tenderness, No hepatospenomegaly, No masses Extremities: No clubbing, No cyanosis, No edema, Normal pulses, No tenderness/swelling Neuro: Normal gait, Normal speech, Strength at 5/5 X4 ext, Normal tone, Sensation intact, Cranial nerves 3-12 NL Psych/Mental Status: Mental status NL, Mood NL Medications Current Medications Medications Dose Ordered Sig/Chele Route Start Time Stop Time Status Last Admin Dose Admin Vancomycin HCl 0 ml @ 0 mls/hr UD IV 06/14/25 15:00 Sodium Chloride 1,000 ml @ 100 mls/hr Q10H IV 06/14/25 15:00 06/17/25 03:53 100 MLS/HR Acetaminophen/ Hydrocodone Bitart 1 tab Q4HP PRN PO 06/14/25 15:00 Zinc Sulfate 220 mg DAILY PO 06/15/25 10:00 06/17/25 08:43 220 MG Ascorbic Acid 500 mg BID PO 06/14/25 22:00 06/17/25 08:43 500 MG Multivitamins 1 tab DAILY PO 06/15/25 10:00 06/17/25 08:43 1 TAB Acetaminophen 650 mg Q6HP PRN PO 06/14/25 15:00 06/17/25 08:43 650 MG Vancomycin HCl 250 ml @ 250 mls/hr Q12H IV 06/14/25 22:00 06/17/25 08:46 250 MLS/HR Famotidine 20 mg DAILY PO 06/15/25 10:00 06/17/25 08:40 20 MG Ampicillin Sodium/ Sulbactam Sodium 3 gm/Sodium Chloride 100 ml @ 100 mls/hr Q6H IV 06/15/25 11:00 06/17/25 11:16 100 MLS/HR Ondansetron HCl 4 mg Q4HPRN PRN IV 06/15/25 14:45 06/16/25 12:35 4 MG Patient Own Medication 1 DAILY@1999 PO 06/15/25 20:00 06/16/25 20:13 1 Laboratory Results Laboratory Tests 06/16/25 05:16 06/17/25 06:36 Urinalysis Test 06/15/25 00:26 Urine Color Colorless (Yellow) Urine Clarity Clear (Clear) Urine pH 5.0 (5.0-9.0) Urine Specific [place] 1.006 (1.001-1.035) Urine Protein Normal (Negative) Urine Ketones Negative (Negative) Urine Blood Normal /uL (Negative) Urine Nitrite Negative (Negative) Urine Bilirubin Negative (Negative) Urine Urobilinogen Normal mg/dL (Negative) Urine Leukocyte Esterase Negative /uL (Negative) Urine Glucose Normal mg/dL (Normal) Microbiology Microbiology Date/Time Source Procedure Growth Status 06/16/25 10:45 Breast Left Gram Stain - Preliminary Resulted 06/16/25 10:45 Breast Left Anaerobic Culture - Preliminary Resulted 06/16/25 10:45 Breast Left Aerobic Culture - Preliminary Resulted 06/14/25 10:30 Blood Blood Culture - Preliminary NO GROWTH AFTER 72 HOURS OF INCUBATION. Resulted Labs and/or images reviewed: Labs reviewed by me, Image(s) reviewed by me Assessment/Plan Assessment/Plan 60-year-old female with past medical history of breast cancer currently in remission, depression and GERD presenting to the ER with chief complaint of left breast abscess for the past 1-1/2 weeks. She reports that she went to an urgent care a week ago and was prescribed cephalexin but no relief has been noted as the abscess has not improved. Due to insurance issues the patient has been unable to see her PCP in which a referral to surgeon can be initiated. The patient is concerned about her symptoms and would like to be further evaluated and treated. The patient will be admitted under hospitalist care to the medical-surgical unit. The patient denies fever, chills, headache, dizziness, shortness of breath, palpitation, chest pain, nausea, vomiting, abdominal pain, diarrhea, constipation and other associated symptoms. The plan has been discussed with the patient and daughter who is with her in which all questions concerns have been addressed. 06/15: Patient has chest wall/breast abscess, almost sternal region. Area is erythematous induration. Patient has history of cancer with right mastectomy, possible immunosuppression, currently on 3/5 years of anastrozole. Surgery to eval today. Continue IV antibiotics vancomycin/Unasyn. Escalated diet from cardiac to regular, no history of CHF for diabetes. Left breast abscess evident on ultrasound. 06/16: Patient taken to OR today for drainage of abscess/infected cyst. We will follow up with surgery thereafter, continue IV antibiotics : Patient needs to be observed for another 24 hours per surgery. We will continue IV antibiotics. Surgery following, appreciate recommendations. Diagnosis: Left breast /chest wall abscess and/or cyst GERD Depression Plan: IV antibiotics Prn analgesia Prn antiemetics IV fluids Continue diet Code continue home medications Med surge Full Plan discussed with: Patient Date of Service: Jun 17, 2025 Billing Provider: NELL MILES MD Common Visit Codes: [id number] INP/OBS CARE(HIGH) NELL MILES MD Jun 17, 2025 11:48
[2025-06-17 12:34] VITALS: BP 150/93; PULSE 72; RESP 18; TEMP 98.1; O2SAT 97
[2025-06-17 21:00] VITALS: BP 143/73; PULSE 70; RESP 18; TEMP 98.1; O2SAT 99
[2025-06-18 01:00] VITALS: BP 152/77; PULSE 68; RESP 17; TEMP 98.4; O2SAT 98
[2025-06-18 05:00] VITALS: BP 151/80; PULSE 68; RESP 16; TEMP 97.7; O2SAT 97
[2025-06-18] MEDS: DOCUSATE SOD 100 MG CAP PO PRN (05:59)
[2025-06-18 08:00] VITALS: PULSE 69; RESP 17; O2SAT 96
[2025-06-18 08:28] LABS: Hematocrit 33.3 % (36.0-46.0); Hemoglobin 11.3 g/dL (12.2-16.2); Mean Corpuscular Hemoglobin 30.6 pg (28.0-32.0); Mean Corpuscular Volume 89.9 fL (80.0-100.0); Nucleated Red Blood Cells % 0.0 %
[2025-06-18 08:49] LABS: Anion Gap 9 (5-15); Carbon Dioxide 25 mmol/L (20-31)
[2025-06-18 08:53] LABS: Calcium 8.4 mg/dL (8.7-10.4); Chloride 108 mmol/L (98-107); Potassium 3.9 mmol/L (3.5-5.1); Sodium 142 mmol/L (136-145)
[2025-06-18 08:55] LABS: BUN/Creatinine Ratio 17.5 (10.0-20.0); Blood Urea Nitrogen 10 mg/dL (9-23); Glucose 76 mg/dL (74-106)
[2025-06-18 09:00] VITALS: BP_SYST 120; BP_SYST 161; BP_DIAS 58; BP_DIAS 80; PULSE 69; RESP 17; TEMP 98.8; O2SAT 96
[2025-06-18 12:58] VITALS: BP 141/77; PULSE 71; RESP 19; TEMP 97.9; O2SAT 97
[2025-06-18] MEDS ORDERED: AUG875T PO (15:51)
--- NOTE | 2025-06-18 15:56 | DVHDS2 ---
Discharge Summary Date of Admission Jun 14, 2025 at 14:49 Date of Discharge: Jun 18, 2025 Labs/Diagnostic Data: Laboratory Results Test 06/18/25 08:06 06/15/25 06:43 06/15/25 00:26 06/14/25 17:50 White Blood Count 6.6 10^3/uL (4.4-10.8) Red Blood Count 3.70 10^6/uL (4.0-5.20) Hemoglobin 11.3 g/dL (12.2-16.2) Hematocrit 33.3 % (36.0-46.0) Mean Corpuscular Volume 89.9 fL (80.0-100.0) Mean Corpuscular Hemoglobin 30.6 pg (28.0-32.0) Mean Corpuscular Hemoglobin Concent 34.1 g/dL (32.0-36.0) Red Cell Distribution Width 13.9 % (11.8-14.3) Platelet Count 181 10^3/uL (140-450) Mean Platelet Volume 7.9 fL (6.9-10.8) Neutrophils (%) (Auto) 60.9 % (37.0-80.0) Lymphocytes (%) (Auto) 27.5 % (10.0-50.0) Monocytes (%) (Auto) 9.5 % (0.0-12.0) Eosinophils (%) (Auto) 1.3 % (0.0-7.0) Basophils (%) (Auto) 0.8 % (0.0-2.0) Neutrophils # (Auto) 4.0 10 ^3/uL (1.6-8.6) Lymphocytes # (Auto) 1.8 10 ^3/uL (0.4-5.4) Monocytes # (Auto) 0.6 10 ^3/uL (0-1.3) Eosinophils # (Auto) 0.1 10 ^3/uL (0-0.8) Basophils # (Auto) 0.1 10 ^3/uL (0-0.2) Nucleated Red Blood Cells 0.0 % Sodium Level 142 mmol/L (136-145) Potassium Level 3.9 mmol/L (3.5-5.1) Chloride Level 108 mmol/L (98-107) Carbon Dioxide Level 25 mmol/L (20-31) Anion Gap 9 (5-15) Blood Urea Nitrogen 10 mg/dL (9-23) Creatinine 0.57 mg/dL (0.550-1.02) Glomerular Filtration Rate Calc 105 mL/min (>90) BUN/Creatinine Ratio 17.5 (10.0-20.0) Serum Glucose 76 mg/dL (74-106) Calcium Level 8.4 mg/dL (8.7-10.4) Vancomycin Level Trough 11.9 ug/mL (5-10) Total Bilirubin 0.7 mg/dL (0.2-1.0) Aspartate Amino Transferase (AST) 19 U/L (13-40) Alanine Aminotransferase (ALT) 12 U/L (7-40) Alkaline Phosphatase 116 U/L (46-116) Total Protein 6.5 g/dL (5.7-8.2) Albumin 4.1 g/dL (3.2-4.8) Urine Color Colorless (Yellow) Urine Clarity Clear (Clear) Urine pH 5.0 (5.0-9.0) Urine Specific [place] 1.006 (1.001-1.035) Urine Protein Normal (Negative) Urine Ketones Negative (Negative) Urine Blood Normal /uL (Negative) Urine Nitrite Negative (Negative) Urine Bilirubin Negative (Negative) Urine Urobilinogen Normal mg/dL (Negative) Urine Leukocyte Esterase Negative /uL (Negative) Urine Glucose Normal mg/dL (Normal) POC Glucose 142 mg/dl (70-106) Test 06/14/25 16:08 Prothrombin Time 10.1 sec (9.3-11.8) Prothrombin Time INR 0.95 (0.9-1.15) Other Laboratory Tests 06/18/25 08:06 Brief Hx & Hospital Course: 60-year-old female with past medical history of breast cancer currently in remission, depression and GERD presenting to the ER with chief complaint of left breast abscess for the past 1-1/2 weeks. She reports that she went to an urgent care a week ago and was prescribed cephalexin but no relief has been noted as the abscess has not improved. Due to insurance issues the patient has been unable to see her PCP in which a referral to surgeon can be initiated. The patient is concerned about her symptoms and would like to be further evaluated and treated. The patient will be admitted under hospitalist care to the medical-surgical unit. The patient denies fever, chills, headache, dizziness, shortness of breath, palpitation, chest pain, nausea, vomiting, abdominal pain, diarrhea, constipation and other associated symptoms. The plan has been discussed with the patient and daughter who is with her in which all questions concerns have been addressed. 06/15: Patient has chest wall/breast abscess, almost sternal region. Area is erythematous induration. Patient has history of cancer with right mastectomy, possible immunosuppression, currently on 3/5 years of anastrozole. Surgery to eval today. Continue IV antibiotics vancomycin/Unasyn. Escalated diet from cardiac to regular, no history of CHF for diabetes. Left breast abscess evident on ultrasound. 06/16: Patient taken to OR today for drainage of abscess/infected cyst. We will follow up with surgery thereafter, continue IV antibiotics : Patient needs to be observed for another 24 hours per surgery. We will continue IV antibiotics. Surgery following, appreciate recommendations. Diagnosis: Left breast /chest wall abscess and/or cyst GERD Depression plan: - augmentin 875mg 2x/day for 5 days. - take whole [place] yougurt, tbsp full 2x/day for 14 days For pain take 1st line Tylenol, second-line ibuprofen - resume other home medications. - follow up with surgery 1-2 weeks - follow-up with PCP to review discharge. Condition at Discharge: Fair Final Diagnosis/Problems List Left breast /chest wall abscess and/or cyst GERD Depression Discharge Disposition: Home Discharge Instruct/Medications Scheduled Azithromycin (Zithromax Z-Issac), 250 MG PO DAILY Ondansetron HCl (Ondansetron Hydrochloride), 1 TAB PO TID, (Reported) Pantoprazole Sodium Sesquihydr (Protonix), 40 MG PO DAILY, (Reported) Scheduled PRN Fluticasone Propionate (Nasal) (Fluticasone Propionate), 50 MCG EACHNOSTRI [id number] PRN Senna (Senna Lax), 8.6 MG PO BIDPRN PRN for FOR CONSTIPATION, (Reported) Miscellaneous Medications Dexamethasone (Dexamethasone), PO, (Reported) Paroxetine Hydrochloride (Paroxetine Hydrochloride), 10 MG PO, (Reported) Discharge Statement: "Patient was advised to return to the ER or call 911 if any headaches, dizziness, shortness of breath, chest pain, abdominal pain, bleeding, fevers, or worsening of medical condition. Patient was counseled about treatment plan, medications, possible side effects, patientverbalized understanding. All questions were answered to the best of my ability. This discharge took greater then 30 minutes in planning, reviewing documentation, counseling the patient, and discussing with other team members." ASSESSMENT ASSESSMENT Assessment Date of Service: Jun 18, 2025 Billing Provider: NELL MILES MD Common Visit Codes: [id number] DISCH DAY >30min NELL MILES MD Jun 18, 2025 15:56
[2025-06-18 17:06] VITALS: BP 142/81; PULSE 66; RESP 20; TEMP 97.6; O2SAT 97
--- NOTE | 2025-06-18 18:24 | DVHPN2 ---
Progress Note Date Seen: Jun 18, 2025 Medical Necessity Reason Pt with a Central, PICC or Fol: No Objective vital signs Vital Sign Date Time Temp Pulse Resp B/P (MAP) Pulse Ox O2 Delivery O2 Flow Rate FiO2 06/18/25 17:06 97.6 66 20 142/81 (101) 97 97.6 06/18/25 08:00 Room Air* 0 21 Total Intake and Output 06/17/25 06/17/25 06/18/25 15:00 23:00 07:00 Intake Total 1385 ml 1000 ml Balance 1385 ml 1000 ml medications Current Medications Medications Dose Ordered Sig/Chele Route Start Time Stop Time Status Last Admin Dose Admin Vancomycin HCl 0 ml @ 0 mls/hr UD IV 06/14/25 15:00 Sodium Chloride 1,000 ml @ 100 mls/hr Q10H IV 06/14/25 15:00 06/18/25 14:18 100 MLS/HR Acetaminophen/ Hydrocodone Bitart 1 tab Q4HP PRN PO 06/14/25 15:00 Zinc Sulfate 220 mg DAILY PO 06/15/25 10:00 06/18/25 09:37 220 MG Ascorbic Acid 500 mg BID PO 06/14/25 22:00 06/18/25 09:37 500 MG Multivitamins 1 tab DAILY PO 06/15/25 10:00 06/18/25 09:37 1 TAB Acetaminophen 650 mg Q6HP PRN PO 06/14/25 15:00 06/17/25 08:43 650 MG Vancomycin HCl 250 ml @ 250 mls/hr Q12H IV 06/14/25 22:00 06/18/25 09:38 250 MLS/HR Famotidine 20 mg DAILY PO 06/15/25 10:00 06/18/25 08:11 20 MG Ampicillin Sodium/ Sulbactam Sodium 3 gm/Sodium Chloride 100 ml @ 100 mls/hr Q6H IV 06/15/25 11:00 06/18/25 17:09 100 MLS/HR Ondansetron HCl 4 mg Q4HPRN PRN IV 06/15/25 14:45 06/16/25 12:35 4 MG Patient Own Medication 1 DAILY@2000 PO 06/15/25 20:00 06/17/25 20:17 1 Docusate Sodium 100 mg BIDPRN PRN PO 06/18/25 04:45 06/18/25 14:18 100 MG laboratory and microbiology Laboratory Tests 06/18/25 08:06 Test 06/18/25 08:06 Range/Units Serum Glucose 76 74-106 mg/dL Microbiology Date/Time Source Procedure Growth Status 06/16/25 10:45 Breast Left Gram Stain - Final Resulted 06/16/25 10:45 Breast Left Anaerobic Culture - Preliminary Resulted 06/16/25 10:45 Breast Left Aerobic Culture - Preliminary Resulted 06/14/25 10:30 Blood Blood Culture - Preliminary NO GROWTH AFTER 72 HOURS OF INCUBATION. Resulted Problem List/Assessment/Plan Problem List/Assessment/Plan AFEBRILE VSS LEFT BREAST WOUND HEALING DRAIN REMOVED NO COMPLICATIONS CLEARED FOR DISCHARGE INSTRUCTIONS RE DIET ACTIVITY F/UP GIVEN NURSE AT BEDSIDE Plan discussed with: Patient SULY SANTIAGO MD Jun 18, 2025 18:24
== END 2025-06-18 18:55 | disposition home or self-care (01) | DRG 385 ==
LOC: ER 09:56 → OVERFLOW 14:49 → WEST WING 23:31
PROVIDERS: ADMIT Student in an Organized Health Care Education/Training Program; ATTEND Student in an Organized Health Care Education/Training Program
PROC: 0H9U0ZX Drainage of Left Breast, Open Approach, Diagnostic (ICD-10-PCS; principal; 2025-06-16 10:19)
DX: N61.1 Abscess of the breast and nipple (principal); L02.213 Cutaneous abscess of chest wall; F32.A Depression, unspecified; K21.9 Gastro-esophageal reflux disease without esophagitis; Z85.3 Personal history of malignant neoplasm of breast; Z79.811 Long term (current) use of aromatase inhibitors; Z90.49 Acquired absence of other specified parts of digestive tract; Z90.11 Acquired absence of right breast and nipple; Z83.3 Family history of diabetes mellitus; Z82.49 Family history of ischemic heart disease and other diseases of the circulatory system; Z83.42 Family history of familial hypercholesterolemia; Z83.49 Family history of other endocrine, nutritional and metabolic diseases; Z83.511 Family history of glaucoma; Z88.3 Allergy status to other anti-infective agents; Z88.2 Allergy status to sulfonamides
CPT/HCPCS: 36415; 71045; 76642; 80048; 80053; 80202; 81003; 82565; 82962; 85025; 85610; 86850; 86900; 86901; 87040; 87070; 87075; 87076; 87205; 96365; G0378; J2003; J2250; J2405; J2704